=== PATIENT | male | born 1935 | race Two or more races ===

== ENCOUNTER 2017-08-28 23:25 | Emergency (ER) | payer OTHER ==
[~2017-08-28] VITALS: Ht 177.8 cm; Wt 113.4 kg
[~2017-08-28 23:25] MED LIST: ATEN-60 PO; GABA-497 PO; GLIP-115 PO; HYDR25TA4 PO; LORA-205 PO; LOSA50TA6 PO; WARF2.5T; WARF2.5T39 PO
[2017-08-29 00:06] LABS: Basophils # (auto) 0.1 uL; Eosinophils # (auto) 0.2 uL; Eosinophils % (auto) 2.3 % (0.0-7.0); Hematocrit 41.4 % (41.0-53.0); Lymphocytes # (auto) 2.7 uL; Mean Corpuscular Hemoglobin 30.1 pg (28.0-32.0); Mean Corpuscular Hgb Conc. 33.9 g/dL (32.0-36.0); Mean Corpuscular Volume 88.8 fL (80.0-100.0); Mean Platelet Volume 8.8 fL (6.9-10.8); Monocytes # (auto) 0.9 uL; Neutrophils # (auto) 4.5 uL; Neutrophils % (auto) 53.7 % (37.0-80.0); Nucleated Red Blood Cells % 0.1 %; Platelet Count (auto) 148 10^3/uL (140-450); Red Cell Distribution Width 14.7 % (11.8-14.3); White Blood Cell 8.3 10^3/uL (4.4-10.8)
[2017-08-29 00:18] VITALS: BP 143/74
[2017-08-29 00:22] LABS: Albumin 3.6 g/dL (3.4-5.0); Anion Gap 8 (5-15); Aspartate Aminotransferase 20 U/L (15-37); BUN/Creatinine Ratio 12.1; Blood Urea Nitrogen 14 mg/dL (7-18); Calcium 8.3 mg/dL (8.5-10.1); Carbon Dioxide 26 mmol/L (21-32); Chloride 108 mmol/L (98-107); GFR African American 78 mL/min; GFR Non-African American 64 mL/min; Glucose 116 mg/dL (74-106); Magnesium 2.4 mg/dL (1.6-2.6); Potassium 3.8 mmol/L (3.5-5.1); Sodium 142 mmol/L (136-145)
[2017-08-29 00:27] LABS: Alkaline Phosphatase 41 U/L (45-117); Bilirubin, Total 0.7 mg/dL (0.2-1.0); Total Protein 6.8 g/dL (6.4-8.2)
== END 2017-08-29 01:33 | disposition home or self-care (01) ==
LOC: EDBD 23:25 → ER 23:26 → EDUNIT# 23:26 → ER 08-29 01:33
DX: I10 Essential (primary) hypertension (principal); R07.9 Chest pain, unspecified; E11.9 Type 2 diabetes mellitus without complications
CPT/HCPCS: 36415; 80053; 83735; 84484; 85025; 93005; 94761

== ENCOUNTER 2018-01-26 21:13 | Emergency (ER) | payer OTHER ==
[~2018-01-26] VITALS: Ht 157.5 cm; Wt 97.1 kg
[~2018-01-26 21:13] MED LIST changes: -GABA-497 PO; +GABA300C10 PO
[2018-01-26] MEDS: cloNIDine HCL 0.1 MG TAB ONE (21:53)
[2018-01-26] MEDS: cloNIDine HCL 0.1 MG TAB PO ONE (21:53)
[2018-01-26 23:21] LABS: Basophils # (auto) 0.1 uL; Basophils % (auto) 1.1 % (0.0-2.0); Eosinophils # (auto) 0.2 uL; Eosinophils % (auto) 2.4 % (0.0-7.0); Hematocrit 38.1 % (41.0-53.0); Lymphocytes # (auto) 2.3 uL; Lymphocytes % (auto) 24.1 % (10.0-50.0); Mean Corpuscular Hemoglobin 30.1 pg (28.0-32.0); Mean Corpuscular Hgb Conc. 34.1 g/dL (32.0-36.0); Mean Corpuscular Volume 88.2 fL (80.0-100.0); Monocytes # (auto) 0.8 uL; Monocytes % (auto) 8.4 % (0.0-12.0); Platelet Count (auto) 174 10^3/uL (140-450); Red Blood Cells 4.32 10^6/uL (4.5-5.90); Red Cell Distribution Width 14.4 % (11.8-14.3); White Blood Cell 9.4 10^3/uL (4.4-10.8)
[2018-01-26 23:30] LABS: Partial Thromboplastin Time 30.1 sec (22.64-33.71); Prothrombin Time 10.9 sec (9.37-12.3)
[2018-01-26 23:39] LABS: Alanine Aminotransferase 28 U/L (16-61); Albumin 3.4 g/dL (3.4-5.0); Alkaline Phosphatase 41 U/L (45-117); Anion Gap 5 (5-15); Aspartate Aminotransferase 18 U/L (15-37); BUN/Creatinine Ratio 10.2; Bilirubin, Total 1.1 mg/dL (0.2-1.0); Blood Urea Nitrogen 13 mg/dL (7-18); Calcium 7.7 mg/dL (8.5-10.1); Carbon Dioxide 27 mmol/L (21-32); Chloride 106 mmol/L (98-107); GFR African American 70 mL/min; GFR Non-African American 58 mL/min; Glucose 108 mg/dL (74-106); Potassium 3.9 mmol/L (3.5-5.1); Sodium 138 mmol/L (136-145); Total Protein 6.7 g/dL (6.4-8.2)
[2018-01-27 05:28] VITALS: BP 138/60
== END 2018-01-27 05:57 | disposition home or self-care (01) ==
LOC: MERGE 21:13 → ER 21:13
DX: I10 Essential (primary) hypertension (principal); E11.9 Type 2 diabetes mellitus without complications; R42 Dizziness and giddiness
CPT/HCPCS: 36415; 71046; 80053; 83880; 84484; 85025; 85610; 85730; 93005

== ENCOUNTER 2018-03-19 13:06 | Inpatient (IN) | payer OTHER ==
[~2018-03-19] VITALS: Ht 172.7 cm; Wt 94.7 kg
[~2018-03-19 13:06] MED LIST changes: +ATEN50TA; +DOCU-137; +FUR20T; +LORA2TAB89 PO; +LOSA25TA9 PO; +LOSA50TA6; +METF-370 PO; +TRAM50TA2
[2018-03-19 14:15] LABS: Basophils # (auto) 0.1 uL; Basophils % (auto) 0.9 % (0.0-2.0); Eosinophils # (auto) 0.1 uL; Eosinophils % (auto) 0.6 % (0.0-7.0); Hematocrit 44.1 % (41.0-53.0); Hemoglobin 14.9 g/dL (13.5-17.5); Lymphocytes # (auto) 1.8 uL; Lymphocytes % (auto) 19.1 % (10.0-50.0); Mean Corpuscular Hemoglobin 29.8 pg (28.0-32.0); Mean Corpuscular Hgb Conc. 33.8 g/dL (32.0-36.0); Mean Corpuscular Volume 88.2 fL (80.0-100.0); Monocytes # (auto) 0.8 uL; Monocytes % (auto) 8.2 % (0.0-12.0); Neutrophils # (auto) 6.8 uL; Neutrophils % (auto) 71.2 % (37.0-80.0); Nucleated Red Blood Cells % 0.1 %; Platelet Count (auto) 170 10^3/uL (140-450); Red Cell Distribution Width 13.7 % (11.8-14.3); White Blood Cell 9.5 10^3/uL (4.4-10.8)
[2018-03-19 14:36] LABS: Alanine Aminotransferase 30 U/L (16-61); Albumin 3.5 g/dL (3.4-5.0); Anion Gap 8 (5-15); Aspartate Aminotransferase 16 U/L (15-37); Blood Urea Nitrogen 10 mg/dL (7-18); Calcium 8.3 mg/dL (8.5-10.1); Carbon Dioxide 27 mmol/L (21-32); Chloride 97 mmol/L (98-107); GFR African American 82 mL/min; GFR Non-African American 68 mL/min; Glucose 105 mg/dL (74-106); Magnesium 1.7 mg/dL (1.6-2.6); Potassium 3.4 mmol/L (3.5-5.1); Sodium 132 mmol/L (136-145)
[2018-03-19 14:41] LABS: Alkaline Phosphatase 37 U/L (45-117); Bilirubin, Total 1.6 mg/dL (0.2-1.0); Total Protein 7.4 g/dL (6.4-8.2)
[2018-03-19] MEDS ORDERED: DEXTROSE (50%) 50ML SYRG IV PRN (18:45)
[2018-03-19] MEDS ORDERED: MORPHINE SULFATE 8mg/ml INJ SDV IV PRN ×2 (18:45)
[2018-03-19] MEDS ORDERED: NITROGLYCERIN 0.4 MG SL TAB SL PRN (18:45)
[2018-03-19] MEDS ORDERED: PROMETHAZINE HCL 25 MG/ML 1ML IV PRN (18:45)
[2018-03-19] MEDS ORDERED: ASPirin 81 mg TAB PO ONE (19:15)
[2018-03-19] MEDS ORDERED: GABAPENTIN 300 MG CAP PO ONE (19:15)
[2018-03-19] MEDS ORDERED: LOSARTAN POTASSIUM 50 MG TAB PO ONE (19:15)
[2018-03-19] MEDS ORDERED: HCTZ 25 MG TAB PO ONE (19:15)
[2018-03-19] MEDS: SODIUM CHLORIDE 0.9% 1,000 ML IV SCH (20:03)
[2018-03-19 20:55] LABS: INR 1.04 (0.9-1.15); Partial Thromboplastin Time 32.6 sec (23.78-33.04); Prothrombin Time 11.1 sec (9.27-12.13)
[2018-03-19] MEDS ORDERED: WARFARIN SODIUM 5 MG TAB PO ONE (21:45)
[2018-03-19] MEDS: ATORVASTATIN 20 MG TAB PO SCH (21:59)
[2018-03-19] MEDS: LORazepam 0.5 MG TAB PO PRN (22:00)
[2018-03-19] MEDS: ATENOLOL 25 MG TAB PO SCH (22:00)
[2018-03-19] MEDS: ACCU-CHEK COMFORT CURVE STRIP VI SCH (22:00)
[2018-03-19] MEDS: InsuLIN REG 1unit/0.01ml Soln (100units/ml) SC SCH (22:00)
[2018-03-19] MEDS: ACETAMINOPHEN 500 MG TAB PO PRN (22:01)
[2018-03-19 22:52] LABS: Urine Bacteria FEW /hpf (None Seen); Urine Blood Negative /uL (Negative); Urine WBC 73 /hpf (0 - 3)
[2018-03-19 23:16] VITALS: BP 153/79
[2018-03-20 01:36] VITALS: BP 125/56
[2018-03-20] MEDS ORDERED: POTASSIUM CHL 20 Meq TABLET PO ONE (01:45)
[2018-03-20] MEDS ORDERED: MAGNESIUM SULFATE 1GM/100ML 100 ML IV ONE ×2 (01:45→01:49)
[2018-03-20 05:25] VITALS: BP 126/84
[2018-03-20] MEDS: InsuLIN REG 1unit/0.01ml Soln (100units/ml) SC SCH ×4 (06:22→21:26)
[2018-03-20] MEDS: ACCU-CHEK COMFORT CURVE STRIP VI SCH ×4 (06:22→21:20)
[2018-03-20 06:56] LABS: INR 1.06 (0.9-1.15); Partial Thromboplastin Time 30.2 sec (23.78-33.04); Prothrombin Time 11.3 sec (9.27-12.13)
[2018-03-20 07:06] LABS: Albumin 3.4 g/dL (3.4-5.0); BUN/Creatinine Ratio 13.9; Bilirubin, Total 1.4 mg/dL (0.2-1.0); Calcium 8.8 mg/dL (8.5-10.1); Potassium 3.5 mmol/L (3.5-5.1); Total Protein 6.4 g/dL (6.4-8.2)
[2018-03-20] MEDS: LORazepam 0.5 MG TAB PO PRN ×2 (08:47→17:28)
[2018-03-20 09:00] VITALS: BP 148/71
[2018-03-20] MEDS ORDERED: glipiZIDE 5 MG TAB PO SCH (10:00)
[2018-03-20] MEDS: NITROGLYCERIN 0.2MG/HR TOPICAL PATCH TD SCH (10:50)
[2018-03-20] MEDS: HCTZ 25 MG TAB PO SCH (10:53)
[2018-03-20] MEDS: LOSARTAN POTASSIUM 50 MG TAB PO SCH (10:53)
[2018-03-20] MEDS: GABAPENTIN 300 MG CAP PO SCH (10:54)
[2018-03-20] MEDS: ASPirin 81 mg TAB PO SCH (10:55)
[2018-03-20] MEDS: ATENOLOL 25 MG TAB PO SCH ×2 (10:55→21:17)
[2018-03-20] MEDS: SODIUM CHLORIDE 0.9% 1,000 ML IV SCH ×2 (11:00→21:16)
[2018-03-20 12:53] VITALS: BP 142/71
[2018-03-20] MEDS: HYDROcodone-ACET 5/325MG TAB PO PRN (13:50)
[2018-03-20 16:53] VITALS: BP 142/77
[2018-03-20] MEDS ORDERED: WARFARIN SODIUM 5 MG TAB PO ONE (17:00)
[2018-03-20] MEDS: ACETAMINOPHEN 500 MG TAB PO PRN (17:28)
[2018-03-20] MEDS: TEMAZEPAM 15 MG CAP PO PRN (21:17)
[2018-03-20] MEDS: ATORVASTATIN 20 MG TAB PO SCH (21:17)
[2018-03-20 22:19] VITALS: BP 127/99
[2018-03-21] MEDS: ACETAMINOPHEN 500 MG TAB PO PRN ×2 (03:24→23:32)
[2018-03-21] MEDS: LORazepam 0.5 MG TAB PO PRN ×4 (03:24→23:27)
[2018-03-21 05:09] VITALS: BP 129/81
[2018-03-21] MEDS: ACCU-CHEK COMFORT CURVE STRIP VI SCH ×4 (06:12→21:42)
[2018-03-21] MEDS: InsuLIN REG 1unit/0.01ml Soln (100units/ml) SC SCH ×4 (06:12→21:43)
[2018-03-21 06:19] LABS: INR 1.17 (0.9-1.15); Prothrombin Time 12.4 sec (9.27-12.13)
[2018-03-21] MEDS ORDERED: SALINE 0.65 % NASAL SPRAY 45ML BOTTLE EACHNOSTRI PRN (07:00)
[2018-03-21 09:10] VITALS: BP 154/84
[2018-03-21] MEDS: LOSARTAN POTASSIUM 50 MG TAB PO SCH (09:35)
[2018-03-21] MEDS: NITROGLYCERIN 0.2MG/HR TOPICAL PATCH TD SCH (09:35)
[2018-03-21] MEDS: HCTZ 25 MG TAB PO SCH (09:35)
[2018-03-21] MEDS: ASPirin 81 mg TAB PO SCH (09:36)
[2018-03-21] MEDS: ATENOLOL 25 MG TAB PO SCH ×2 (09:36→21:41)
[2018-03-21] MEDS: GABAPENTIN 300 MG CAP PO SCH (09:36)
[2018-03-21] MEDS: HYDROcodone-ACET 5/325MG TAB PO PRN ×2 (09:49→17:29)
[2018-03-21] MEDS: SODIUM CHLORIDE 0.9% 1,000 ML IV SCH ×2 (10:42→23:28)
[2018-03-21 13:00] VITALS: BP 145/78
[2018-03-21] MEDS ORDERED: MORPHINE SULFATE 10 MG/ML INJ 1ML SDV IV PRN ×2 (15:00)
[2018-03-21 17:00] VITALS: BP 148/78
[2018-03-21] MEDS ORDERED: WARFARIN SODIUM 2.5 MG TAB PO ONE (17:00)
[2018-03-21] MEDS: ATORVASTATIN 20 MG TAB PO SCH (21:41)
[2018-03-21 22:00] VITALS: BP 152/75
[2018-03-22 05:00] VITALS: BP 143/71
[2018-03-22] MEDS: ACETAMINOPHEN 500 MG TAB PO PRN (06:21)
[2018-03-22] MEDS: LORazepam 0.5 MG TAB PO PRN ×2 (06:22→15:59)
[2018-03-22] MEDS: InsuLIN REG 1unit/0.01ml Soln (100units/ml) SC SCH ×4 (06:26→21:10)
[2018-03-22] MEDS: ACCU-CHEK COMFORT CURVE STRIP VI SCH ×4 (06:26→21:09)
[2018-03-22] MEDS: glipiZIDE 5 MG TAB PO SCH (06:26)
[2018-03-22 08:30] VITALS: BP 151/91
[2018-03-22 08:35] LABS: INR 2.01 (0.9-1.15); Partial Thromboplastin Time 36.6 sec (23.78-33.04); Prothrombin Time 20.7 sec (9.27-12.13)
[2018-03-22 09:00] VITALS: BP 151/91
[2018-03-22] MEDS: GABAPENTIN 300 MG CAP PO SCH (09:23)
[2018-03-22] MEDS: ASPirin 81 mg TAB PO SCH (09:23)
[2018-03-22] MEDS: HCTZ 25 MG TAB PO SCH (09:24)
[2018-03-22] MEDS: ATENOLOL 25 MG TAB PO SCH ×2 (09:24→21:09)
[2018-03-22] MEDS: LOSARTAN POTASSIUM 50 MG TAB PO SCH (09:24)
[2018-03-22] MEDS: NITROGLYCERIN 0.2MG/HR TOPICAL PATCH TD SCH (09:25)
[2018-03-22 13:00] VITALS: BP 165/98
[2018-03-22] MEDS: SODIUM CHLORIDE 0.9% 1,000 ML IV SCH (13:22)
[2018-03-22] MEDS ORDERED: cloNIDine HCL 0.1 MG TAB PO ONE (16:00)
[2018-03-22] MEDS ORDERED: traMADol HCL 50 MG TAB PO PRN (16:15)
[2018-03-22 17:00] VITALS: BP_SYST 155; BP_SYST 158; BP_DIAS 103; BP_DIAS 96
[2018-03-22] MEDS ORDERED: WARFARIN SODIUM 1 MG TAB PO ONE (17:00)
[2018-03-22] MEDS: cloNIDine HCL 0.1 MG TAB PO SCH (21:09)
[2018-03-22] MEDS: ATORVASTATIN 20 MG TAB PO SCH (21:09)
[2018-03-22] MEDS: TEMAZEPAM 15 MG CAP PO PRN (21:11)
[2018-03-22 22:00] VITALS: BP 160/79
[2018-03-23 05:00] VITALS: BP 138/71
[2018-03-23] MEDS: ACCU-CHEK COMFORT CURVE STRIP VI SCH ×3 (06:21→17:00)
[2018-03-23] MEDS: InsuLIN REG 1unit/0.01ml Soln (100units/ml) SC SCH ×3 (06:21→17:00)
[2018-03-23 06:23] LABS: INR 2.41 (0.9-1.15); Partial Thromboplastin Time 36.5 sec (23.78-33.04); Prothrombin Time 24.5 sec (9.27-12.13)
[2018-03-23] MEDS: glipiZIDE 5 MG TAB PO SCH (07:00)
[2018-03-23 08:22] VITALS: BP 139/82
[2018-03-23 09:00] VITALS: BP 139/82
[2018-03-23] MEDS: GABAPENTIN 300 MG CAP PO SCH (09:36)
[2018-03-23] MEDS: ASPirin 81 mg TAB PO SCH (09:36)
[2018-03-23] MEDS: HCTZ 25 MG TAB PO SCH (09:36)
[2018-03-23] MEDS: LOSARTAN POTASSIUM 50 MG TAB PO SCH (09:37)
[2018-03-23] MEDS: ATENOLOL 25 MG TAB PO SCH (09:37)
[2018-03-23] MEDS: NITROGLYCERIN 0.2MG/HR TOPICAL PATCH TD SCH (09:38)
[2018-03-23] MEDS: LORazepam 0.5 MG TAB PO PRN (09:40)
[2018-03-23] MEDS: cloNIDine HCL 0.1 MG TAB PO SCH (09:41)
[2018-03-23 12:48] VITALS: BP 112/64
[2018-03-23 15:45] VITALS: BP 112/64
[2018-03-23 17:00] VITALS: BP 135/82
[2018-03-23] MEDS ORDERED: WARFARIN SODIUM 2 MG TAB PO ONE (17:00)
== END 2018-03-23 19:10 | disposition home or self-care (01) | DRG 292 ==
LOC: EDBD 13:06 → ER 13:06 → TELE 13:07 → TELE-WESTW 20:22
PROVIDERS: ADMIT Internal Medicine; ATTEND Internal Medicine
DX: I11.0 Hypertensive heart disease with heart failure (principal); E87.1 Hypo-osmolality and hyponatremia; I48.2 Chronic atrial fibrillation; E66.01 Morbid (severe) obesity due to excess calories; I44.7 Left bundle-branch block, unspecified; R07.89 Other chest pain; I50.9 Heart failure, unspecified; E87.6 Hypokalemia; Z82.49 Family history of ischemic heart disease and other diseases of the circulatory system; Z83.3 Family history of diabetes mellitus; Z85.46 Personal history of malignant neoplasm of prostate; Z79.899 Other long term (current) drug therapy; Z68.31 Body mass index [BMI] 31.0-31.9, adult
CPT/HCPCS: 36415; 71045; 80053; 80061; 81001; 82550; 82962; 83036; 83735; 83880; 84443; 84484; 85025; 85379; 85610; 85652; 85730; 86141; 93005; J1815

== ENCOUNTER 2018-04-05 18:40 | Emergency (ER) | payer OTHER ==
[~2018-04-05] VITALS: Ht 175.3 cm; Wt 90.7 kg
[2018-04-05 20:41] LABS: Basophils # (auto) 0.1 uL; Basophils % (auto) 0.8 % (0.0-2.0); Eosinophils # (auto) 0.1 uL; Eosinophils % (auto) 0.8 % (0.0-7.0); Lymphocytes # (auto) 1.7 uL; Lymphocytes % (auto) 19.6 % (10.0-50.0); Mean Corpuscular Hemoglobin 29.4 pg (28.0-32.0); Mean Corpuscular Hgb Conc. 33.4 g/dL (32.0-36.0); Mean Corpuscular Volume 88.1 fL (80.0-100.0); Monocytes # (auto) 0.8 uL; Monocytes % (auto) 9.1 % (0.0-12.0); Neutrophils # (auto) 6.1 uL; Neutrophils % (auto) 69.7 % (37.0-80.0); Nucleated Red Blood Cells % 0.1 %; Platelet Count (auto) 145 10^3/uL (140-450); Red Blood Cells 4.76 10^6/uL (4.5-5.90); Red Cell Distribution Width 13.6 % (11.8-14.3); White Blood Cell 8.8 10^3/uL (4.4-10.8)
[2018-04-05 20:49] LABS: Alanine Aminotransferase 36 U/L (16-61); Albumin 3.6 g/dL (3.4-5.0); Alkaline Phosphatase 42 U/L (45-117); Anion Gap 9 (5-15); Aspartate Aminotransferase 29 U/L (15-37); BUN/Creatinine Ratio 10.4; Bilirubin, Total 1.8 mg/dL (0.2-1.0); Blood Urea Nitrogen 11 mg/dL (7-18); Calcium 8.4 mg/dL (8.5-10.1); Carbon Dioxide 27 mmol/L (21-32); Chloride 101 mmol/L (98-107); GFR African American 86 mL/min; GFR Non-African American 71 mL/min; Glucose 102 mg/dL (74-106); Magnesium 2.3 mg/dL (1.6-2.6); Potassium 4.3 mmol/L (3.5-5.1); Sodium 137 mmol/L (136-145)
[2018-04-05 20:58] LABS: INR 1.05 (0.9-1.15); Partial Thromboplastin Time 29.3 sec (23.78-33.04); Prothrombin Time 11.2 sec (9.27-12.13)
[2018-04-05 21:41] VITALS: BP 146/89
== END 2018-04-05 22:16 | disposition home or self-care (01) ==
LOC: EDBD 18:40 → ER 18:44
DX: R07.89 Other chest pain (principal); E11.9 Type 2 diabetes mellitus without complications; I10 Essential (primary) hypertension; I48.91 Unspecified atrial fibrillation; Z79.899 Other long term (current) drug therapy
CPT/HCPCS: 36415; 71045; 80053; 83735; 84484; 85025; 85610; 85730; 93005

== ENCOUNTER 2018-06-29 11:54 | Inpatient (IN) | payer OTHER ==
[~2018-06-29] VITALS: Ht 167.6 cm; Wt 99.5 kg
[~2018-06-29 11:54] MED LIST changes: -ATEN50TA; -DOCU-137; +FAMOTIDINE 20 MG TAB PO SCH; -FUR20T; -GLIP-115 PO; -LORA2TAB89 PO; +LOSA-46 PO; -LOSA25TA9 PO; -LOSA50TA6; -LOSA50TA6 PO; -METF-370 PO; -TRAM50TA2; -WARF2.5T; -WARF2.5T39 PO
[2018-06-29] MEDS ORDERED: ASPirin 81 mg TAB PO ONE (12:30)
[2018-06-29 13:29] LABS: Basophils # (auto) 0.1 uL; Basophils % (auto) 0.6 % (0.0-2.0); Eosinophils # (auto) 0 uL; Eosinophils % (auto) 0.1 % (0.0-7.0); Hemoglobin 15.1 g/dL (13.5-17.5); Lymphocytes # (auto) 1.2 uL; Lymphocytes % (auto) 12.6 % (10.0-50.0); Mean Corpuscular Hemoglobin 28.9 pg (28.0-32.0); Mean Corpuscular Hgb Conc. 33.6 g/dL (32.0-36.0); Mean Corpuscular Volume 85.9 fL (80.0-100.0); Monocytes # (auto) 1.3 uL; Monocytes % (auto) 13.9 % (0.0-12.0); Neutrophils % (auto) 72.8 % (37.0-80.0); Nucleated Red Blood Cells % 0.1 %; Platelet Count (auto) 151 10^3/uL (140-450); Red Blood Cells 5.23 10^6/uL (4.5-5.90); Red Cell Distribution Width 15.6 % (11.8-14.3); White Blood Cell 9.6 10^3/uL (4.4-10.8)
[2018-06-29] MEDS ORDERED: cefTRIAXone 1GM/10ml IVPUSH 10 ML IV ONE (13:45)
[2018-06-29] MEDS ORDERED: FUROSEMIDE 40 MG/4 ML VIAL IV ONE (13:45)
[2018-06-29 13:47] LABS: INR 1.33 (0.9-1.15)
[2018-06-29 14:03] LABS: Alanine Aminotransferase 202 U/L (16-61); Albumin 3.3 g/dL (3.4-5.0); Alkaline Phosphatase 76 U/L (45-117); Anion Gap 8 (5-15); Aspartate Aminotransferase 116 U/L (15-37); BUN/Creatinine Ratio 17.2; Bilirubin, Total 2.3 mg/dL (0.2-1.0); Blood Urea Nitrogen 35 mg/dL (7-18); Calcium 8.1 mg/dL (8.5-10.1); Carbon Dioxide 25 mmol/L (21-32); Chloride 103 mmol/L (98-107); GFR African American 41 mL/min; GFR Non-African American 33 mL/min; Glucose 120 mg/dL (74-106); Potassium 4.1 mmol/L (3.5-5.1); Sodium 136 mmol/L (136-145); Total Protein 6.5 g/dL (6.4-8.2)
[2018-06-29] MEDS ORDERED: AZITHROMYCIN 500MG/ 250ML 250 ML IV ONE (15:30)
[2018-06-29] MEDS ORDERED: HYDROcodone-ACET 5/325MG TAB PO PRN (15:30)
[2018-06-29] MEDS ORDERED: NITROGLYCERIN 0.4 MG SL TAB SL PRN (15:30)
[2018-06-29] MEDS ORDERED: MORPHINE SULF INJ 2 MG/ML SYRINGE 1ML IV PRN (15:30)
[2018-06-29] MEDS ORDERED: DEXTROSE (50%) 50ML SYRG IV PRN (15:30)
[2018-06-29] MEDS ORDERED: cloNIDine HCL 0.1 MG TAB PO PRN (16:00)
[2018-06-29] MEDS ORDERED: FAMOTIDINE 20 MG TAB PO ONE (16:15)
[2018-06-29 16:23] VITALS: BP 137/84
[2018-06-29 17:00] VITALS: BP 119/93
[2018-06-29] MEDS: POTASSIUM CHL 10 Meq TABLET PO SCH (17:45)
[2018-06-29] MEDS: ACCU-CHEK COMFORT CURVE STRIP VI SCH ×2 (17:45→21:17)
[2018-06-29 17:50] VITALS: BP 119/93
[2018-06-29] MEDS: InsuLIN REG 1unit/0.01ml Soln (100units/ml) SC SCH ×2 (17:50→21:16)
[2018-06-29] MEDS: traMADol HCL 50 MG TAB PO PRN (17:56)
[2018-06-29] MEDS ORDERED: FUROSEMIDE 40 MG/4 ML VIAL IV SCH (18:00)
[2018-06-29] MEDS: ALBUTEROL SULF 2.5 MG/0.5ML(0.5%) NEB SOLN NEB SCH (18:48)
[2018-06-29] MEDS: IPRATROPIUM BROM 0.5 MG/2.5ML INH SOL NEB SCH (18:48)
[2018-06-29 19:38] LABS: Lactic Acid w/Reflex 2.7 mmol/L (0.4-2.0)
[2018-06-29] MEDS: DOCUSATE SOD 100 MG CAP PO PRN (20:04)
[2018-06-29] MEDS: ONDANSETRON HCL 4 MG/2 ML VIAL IV PRN (20:05)
[2018-06-29 20:55] VITALS: BP 133/100
[2018-06-29] MEDS: SODIUM CHLOR 0.9% PF (SALINE LOCK) 10ML VIAL/SYR IV SCH (21:14)
[2018-06-29] MEDS: cloNIDine HCL 0.1 MG TAB PO SCH (21:14)
[2018-06-29] MEDS ORDERED: ATENOLOL 50 MG TAB PO ONE (21:45)
[2018-06-29 22:00] VITALS: BP 127/93
[2018-06-29] MEDS ORDERED: DICLOFENAC 50MG TAB PO SCH (22:00)
[2018-06-29 23:13] LABS: Urine Bacteria MOD /hpf (None Seen); Urine Blood Negative /uL (Negative); Urine Hyaline Cast MOD /lpf (0 - 2); Urine Mucus FEW (None Seen); Urine Specific Gravity 1.008 (1.001-1.035); Urine WBC 3 /hpf (0 - 3)
[2018-06-29] MEDS ORDERED: SODIUM CHLORIDE 0.9% 500 ML IV ONE (23:30)
[2018-06-30] MEDS: ALBUTEROL SULF 2.5 MG/0.5ML(0.5%) NEB SOLN NEB SCH ×4 (00:36→18:00)
[2018-06-30] MEDS: IPRATROPIUM BROM 0.5 MG/2.5ML INH SOL NEB SCH ×4 (00:36→18:00)
[2018-06-30] MEDS ORDERED: POTA10TA51 PO (01:25)
[2018-06-30] MEDS ORDERED: RANI150C11 PO (01:36)
[2018-06-30] MEDS ORDERED: [UNRECOGNIZED DRUG - CODE] PO (01:36)
[2018-06-30] MEDS ORDERED: MECL1TAB42 PO (01:36)
[2018-06-30] MEDS ORDERED: MELO1TAB56 PO (01:36)
[2018-06-30] MEDS ORDERED: DOCU1CAP54 PO (01:37)
[2018-06-30] MEDS ORDERED: LORA2TAB89 PO (01:37)
[2018-06-30] MEDS ORDERED: TAM04C PO (01:37)
[2018-06-30] MEDS ORDERED: LORA2TAB10 PO (01:37)
[2018-06-30] MEDS ORDERED: CLON0.1T PO (01:37)
[2018-06-30] MEDS ORDERED: TEMA15CA91 PO (01:37)
[2018-06-30] MEDS ORDERED: FURO20TA PO (01:37)
[2018-06-30] MEDS ORDERED: SERT-274 PO (01:37)
[2018-06-30] MEDS ORDERED: TRAM50TA2 PO (01:37)
[2018-06-30] MEDS ORDERED: DICL50TA2 PO (01:37)
[2018-06-30] MEDS ORDERED: CHOL20007 PO (01:37)
[2018-06-30] MEDS ORDERED: BUSP5TAB51 PO (01:37)
[2018-06-30 04:46] VITALS: BP 126/95
[2018-06-30] MEDS: FUROSEMIDE 40 MG/4 ML VIAL IV SCH ×2 (05:26→17:59)
[2018-06-30] MEDS: SODIUM CHLOR 0.9% PF (SALINE LOCK) 10ML VIAL/SYR IV SCH ×3 (05:27→21:22)
[2018-06-30] MEDS: InsuLIN REG 1unit/0.01ml Soln (100units/ml) SC SCH ×4 (05:28→22:00)
[2018-06-30] MEDS: POTASSIUM CHL 10 Meq TABLET PO SCH ×2 (05:28→17:59)
[2018-06-30] MEDS: ACCU-CHEK COMFORT CURVE STRIP VI SCH ×4 (05:28→22:31)
[2018-06-30 05:36] VITALS: BP 134/78
[2018-06-30 05:41] LABS: Basophils # (auto) 0.1 uL; Basophils % (auto) 0.9 % (0.0-2.0); Eosinophils # (auto) 0 uL; Eosinophils % (auto) 0.4 % (0.0-7.0); Hematocrit 47.4 % (41.0-53.0); Hemoglobin 15.6 g/dL (13.5-17.5); Lymphocytes # (auto) 2.2 uL; Lymphocytes % (auto) 19.1 % (10.0-50.0); Mean Corpuscular Hemoglobin 28.6 pg (28.0-32.0); Mean Corpuscular Hgb Conc. 32.9 g/dL (32.0-36.0); Monocytes % (auto) 17.2 % (0.0-12.0); Neutrophils # (auto) 7.2 uL; Neutrophils % (auto) 62.4 % (37.0-80.0); Nucleated Red Blood Cells % 0.1 %; Platelet Count (auto) 148 10^3/uL (140-450); Red Blood Cells 5.45 10^6/uL (4.5-5.90); White Blood Cell 11.6 10^3/uL (4.4-10.8)
[2018-06-30 06:00] LABS: Lactic Acid w/Reflex 2.3 mmol/L (0.4-2.0)
[2018-06-30 06:04] LABS: Albumin 3.4 g/dL (3.4-5.0); BUN/Creatinine Ratio 18.4; Calcium 8.2 mg/dL (8.5-10.1); Potassium 4.4 mmol/L (3.5-5.1); Total Protein 6.7 g/dL (6.4-8.2)
[2018-06-30 09:00] VITALS: BP 150/100
[2018-06-30] MEDS: LORazepam 0.5 MG TAB PO PRN (09:32)
[2018-06-30] MEDS: CHOLECALCIFEROL (VITD3) 1,000 UNIT TAB PO SCH (09:32)
[2018-06-30] MEDS: MULTIPLE VITAMIN TAB PO SCH (09:32)
[2018-06-30] MEDS: ASPirin-EC 81 mg tab PO SCH (09:32)
[2018-06-30] MEDS: cefTRIAXone 1GM/10ml IVPUSH 10 ML IV SCH (09:33)
[2018-06-30] MEDS: FAMOTIDINE 20 MG TAB PO SCH (09:36)
[2018-06-30] MEDS: cloNIDine HCL 0.1 MG TAB PO SCH ×2 (09:37→21:22)
[2018-06-30] MEDS: ONDANSETRON HCL 4 MG/2 ML VIAL IV PRN (09:40)
[2018-06-30] MEDS ORDERED: AZITHROMYCIN 500MG/ 250ML 250 ML IV SCH (10:00)
[2018-06-30] MEDS: MORPHINE SULF INJ 2 MG/ML SYRINGE 1ML IV PRN (11:11)
[2018-06-30 13:00] VITALS: BP 126/77
[2018-06-30 17:00] VITALS: BP 131/82
[2018-06-30] MEDS: BUDESONIDE (INHALATION) 0.5 MG/2 ML NEB NEB SCH (21:38)
[2018-06-30 22:00] VITALS: BP 114/76
[2018-07-01 04:52] VITALS: BP 123/79
[2018-07-01] MEDS: SODIUM CHLOR 0.9% PF (SALINE LOCK) 10ML VIAL/SYR IV SCH ×3 (05:43→21:33)
[2018-07-01] MEDS: InsuLIN REG 1unit/0.01ml Soln (100units/ml) SC SCH ×4 (05:44→22:00)
[2018-07-01] MEDS: FUROSEMIDE 40 MG/4 ML VIAL IV SCH ×2 (05:44→18:41)
[2018-07-01] MEDS: POTASSIUM CHL 10 Meq TABLET PO SCH ×2 (05:44→18:42)
[2018-07-01] MEDS: ACCU-CHEK COMFORT CURVE STRIP VI SCH ×4 (05:44→22:00)
[2018-07-01] MEDS: BUDESONIDE (INHALATION) 0.5 MG/2 ML NEB NEB SCH ×2 (06:21→17:57)
[2018-07-01] MEDS: ALBUTEROL SULF 2.5 MG/0.5ML(0.5%) NEB SOLN NEB SCH ×5 (06:21→23:22)
[2018-07-01] MEDS: IPRATROPIUM BROM 0.5 MG/2.5ML INH SOL NEB SCH ×5 (06:21→23:22)
[2018-07-01 07:13] LABS: Basophils # (auto) 0 uL; Basophils % (auto) 0.5 % (0.0-2.0); Eosinophils # (auto) 0.1 uL; Eosinophils % (auto) 0.5 % (0.0-7.0); Hematocrit 43.7 % (41.0-53.0); Hemoglobin 14.7 g/dL (13.5-17.5); Lymphocytes # (auto) 1.6 uL; Lymphocytes % (auto) 15.8 % (10.0-50.0); Mean Corpuscular Hemoglobin 29.2 pg (28.0-32.0); Mean Corpuscular Hgb Conc. 33.7 g/dL (32.0-36.0); Mean Corpuscular Volume 86.6 fL (80.0-100.0); Monocytes # (auto) 1.5 uL; Neutrophils # (auto) 6.9 uL; Neutrophils % (auto) 68.2 % (37.0-80.0); Nucleated Red Blood Cells % 0.1 %; Platelet Count (auto) 131 10^3/uL (140-450); Red Blood Cells 5.05 10^6/uL (4.5-5.90); Red Cell Distribution Width 15.3 % (11.8-14.3); White Blood Cell 10.1 10^3/uL (4.4-10.8)
[2018-07-01 07:17] LABS: Lactic Acid w/Reflex 2.1 mmol/L (0.4-2.0)
[2018-07-01 07:47] LABS: Albumin 3.2 g/dL (3.4-5.0); BUN/Creatinine Ratio 20.7; Bilirubin, Total 1.4 mg/dL (0.2-1.0); Calcium 8.4 mg/dL (8.5-10.1); Potassium 4.2 mmol/L (3.5-5.1); Total Protein 6.4 g/dL (6.4-8.2)
[2018-07-01 08:30] VITALS: BP 116/77
[2018-07-01] MEDS: ONDANSETRON HCL 4 MG/2 ML VIAL IV PRN (08:38)
[2018-07-01] MEDS: MULTIPLE VITAMIN TAB PO SCH (09:49)
[2018-07-01] MEDS: DOXYCYCLINE 100MG/250ML 250 ML IV SCH ×2 (09:49→21:31)
[2018-07-01] MEDS: ASPirin-EC 81 mg tab PO SCH (09:49)
[2018-07-01] MEDS: cefTRIAXone 1GM/10ml IVPUSH 10 ML IV SCH (09:49)
[2018-07-01] MEDS: CHOLECALCIFEROL (VITD3) 1,000 UNIT TAB PO SCH (09:50)
[2018-07-01] MEDS: FAMOTIDINE 20 MG TAB PO SCH (09:50)
[2018-07-01] MEDS: cloNIDine HCL 0.1 MG TAB PO SCH ×2 (09:52→21:33)
[2018-07-01 12:34] VITALS: BP 137/88
[2018-07-01 16:41] VITALS: BP 119/85
[2018-07-01] MEDS: LORazepam 0.5 MG TAB PO PRN (19:14)
[2018-07-01] MEDS: MORPHINE SULF INJ 2 MG/ML SYRINGE 1ML IV PRN (21:32)
[2018-07-01] MEDS: DOCUSATE SOD 100 MG CAP PO PRN (21:32)
[2018-07-01] MEDS: TEMAZEPAM 15 MG CAP PO PRN (21:32)
[2018-07-01] MEDS: traMADol HCL 50 MG TAB PO PRN (21:32)
[2018-07-01] MEDS: ACETAMINOPHEN 325 MG TAB PO PRN (21:32)
[2018-07-01] MEDS: MECLIZINE HCL 25 MG TAB PO PRN (21:33)
[2018-07-01 21:51] VITALS: BP 138/78
[2018-07-02 04:44] VITALS: BP 121/91
[2018-07-02] MEDS: SODIUM CHLOR 0.9% PF (SALINE LOCK) 10ML VIAL/SYR IV SCH ×3 (06:03→22:00)
[2018-07-02] MEDS: ALBUTEROL SULF 2.5 MG/0.5ML(0.5%) NEB SOLN NEB SCH ×3 (06:03→19:32)
[2018-07-02] MEDS: IPRATROPIUM BROM 0.5 MG/2.5ML INH SOL NEB SCH ×3 (06:03→19:32)
[2018-07-02] MEDS: InsuLIN REG 1unit/0.01ml Soln (100units/ml) SC SCH ×4 (06:04→22:00)
[2018-07-02] MEDS: ACCU-CHEK COMFORT CURVE STRIP VI SCH ×4 (06:04→22:00)
[2018-07-02] MEDS: POTASSIUM CHL 10 Meq TABLET PO SCH ×2 (06:04→18:11)
[2018-07-02] MEDS: FUROSEMIDE 40 MG/4 ML VIAL IV SCH ×2 (06:05→18:11)
[2018-07-02 09:00] VITALS: BP 122/86
[2018-07-02] MEDS: cefTRIAXone 1GM/10ml IVPUSH 10 ML IV SCH (09:22)
[2018-07-02] MEDS: ASPirin-EC 81 mg tab PO SCH (09:41)
[2018-07-02] MEDS: DOXYCYCLINE 100MG/250ML 250 ML IV SCH ×2 (09:41→22:00)
[2018-07-02] MEDS: CHOLECALCIFEROL (VITD3) 1,000 UNIT TAB PO SCH (09:42)
[2018-07-02] MEDS: FAMOTIDINE 20 MG TAB PO SCH (09:42)
[2018-07-02] MEDS: MULTIPLE VITAMIN TAB PO SCH (09:42)
[2018-07-02] MEDS: cloNIDine HCL 0.1 MG TAB PO SCH ×2 (09:43→22:00)
[2018-07-02 09:58] VITALS: BP 122/86
[2018-07-02] MEDS: BUDESONIDE (INHALATION) 0.5 MG/2 ML NEB NEB SCH ×2 (10:18→19:32)
[2018-07-02 13:00] VITALS: BP 137/81
[2018-07-02] MEDS: LORazepam 0.5 MG TAB PO PRN ×2 (16:22→20:36)
[2018-07-02 16:36] LABS: Creatinine, Urine 32 mg/dL (30.0-125.0); Sodium Urine 36 mmol/L (40-220)
[2018-07-02 17:00] VITALS: BP 130/89
[2018-07-02] MEDS: traMADol HCL 50 MG TAB PO PRN (20:35)
[2018-07-02] MEDS: ACETAMINOPHEN 325 MG TAB PO PRN (20:35)
[2018-07-02] MEDS: MECLIZINE HCL 25 MG TAB PO PRN (20:35)
[2018-07-02] MEDS: TEMAZEPAM 15 MG CAP PO PRN (20:35)
[2018-07-02 22:09] VITALS: BP 130/86
[2018-07-03] MEDS: ALBUTEROL SULF 2.5 MG/0.5ML(0.5%) NEB SOLN NEB SCH ×4 (01:04→19:34)
[2018-07-03] MEDS: IPRATROPIUM BROM 0.5 MG/2.5ML INH SOL NEB SCH ×4 (01:04→19:34)
[2018-07-03] MEDS: ACETAMINOPHEN 325 MG TAB PO PRN ×2 (03:12→21:11)
[2018-07-03] MEDS: LORazepam 0.5 MG TAB PO PRN ×3 (03:12→21:11)
[2018-07-03] MEDS: traMADol HCL 50 MG TAB PO PRN ×2 (03:12→21:12)
[2018-07-03] MEDS: SODIUM CHLOR 0.9% PF (SALINE LOCK) 10ML VIAL/SYR IV SCH ×3 (05:27→21:21)
[2018-07-03] MEDS: FUROSEMIDE 40 MG/4 ML VIAL IV SCH ×2 (05:27→18:21)
[2018-07-03] MEDS: POTASSIUM CHL 10 Meq TABLET PO SCH ×2 (05:27→18:21)
[2018-07-03] MEDS: ACCU-CHEK COMFORT CURVE STRIP VI SCH ×4 (05:27→21:21)
[2018-07-03 05:29] VITALS: BP 113/82
[2018-07-03] MEDS: BUDESONIDE (INHALATION) 0.5 MG/2 ML NEB NEB SCH ×2 (05:54→19:34)
[2018-07-03] MEDS: InsuLIN REG 1unit/0.01ml Soln (100units/ml) SC SCH ×4 (05:57→21:20)
[2018-07-03 07:19] LABS: Hematocrit 46.1 % (41.0-53.0); Hemoglobin 15.3 g/dL (13.5-17.5); Mean Corpuscular Hemoglobin 28.7 pg (28.0-32.0); Mean Corpuscular Hgb Conc. 33.3 g/dL (32.0-36.0); Mean Corpuscular Volume 86.4 fL (80.0-100.0); Platelet Count (auto) 144 10^3/uL (140-450); Red Blood Cells 5.33 10^6/uL (4.5-5.90); Red Cell Distribution Width 15.4 % (11.8-14.3); White Blood Cell 10.6 10^3/uL (4.4-10.8)
[2018-07-03 07:24] LABS: Band Neutrophils % (manual) 0; Basophils % (manual) 0 (0.0-2.0); Blast Cells 0; Metamyelocytes % 0; Myelocytes % 0; Promyelocytes % 0; Reactive Lymphocytes 0
[2018-07-03 07:54] LABS: Albumin 3.5 g/dL (3.4-5.0); BUN/Creatinine Ratio 25.7; Bilirubin, Total 1.7 mg/dL (0.2-1.0); Calcium 8.4 mg/dL (8.5-10.1); Phosphorus 4.7 mg/dL (2.5-4.90); Potassium 3.8 mmol/L (3.5-5.1); Total Protein 6.9 g/dL (6.4-8.2); Uric Acid 14.1 mg/dL (3.5-7.2)
[2018-07-03 08:10] LABS: Eosinophils % (manual) 1 (0-7); Lymphocytes % (manual) 19 (10.0-50.0); Monocytes % (manual) 16 (0-12)
[2018-07-03] MEDS: ATENOLOL 25 MG TAB PO SCH ×3 (08:26→19:30)
[2018-07-03 08:55] VITALS: BP 121/89
[2018-07-03] MEDS: MULTIPLE VITAMIN TAB PO SCH (09:36)
[2018-07-03] MEDS: ASPirin-EC 81 mg tab PO SCH (09:36)
[2018-07-03] MEDS: cefTRIAXone 1GM/10ml IVPUSH 10 ML IV SCH (09:36)
[2018-07-03] MEDS: DOXYCYCLINE 100MG/250ML 250 ML IV SCH ×2 (09:36→21:21)
[2018-07-03] MEDS: CHOLECALCIFEROL (VITD3) 1,000 UNIT TAB PO SCH (09:36)
[2018-07-03] MEDS: FAMOTIDINE 20 MG TAB PO SCH (09:36)
[2018-07-03] MEDS: cloNIDine HCL 0.1 MG TAB PO SCH ×2 (09:38→21:13)
[2018-07-03 13:00] VITALS: BP 111/69
[2018-07-03] MEDS: ONDANSETRON HCL 4 MG/2 ML VIAL IV PRN (14:07)
[2018-07-03 17:09] VITALS: BP 106/91
[2018-07-03 21:27] VITALS: BP 116/86
[2018-07-03] MEDS: MORPHINE SULF INJ 2 MG/ML SYRINGE 1ML IV PRN (22:30)
[2018-07-03] MEDS: TEMAZEPAM 15 MG CAP PO PRN (22:30)
[2018-07-04] MEDS: ALBUTEROL SULF 2.5 MG/0.5ML(0.5%) NEB SOLN NEB SCH ×4 (01:09→19:41)
[2018-07-04] MEDS: IPRATROPIUM BROM 0.5 MG/2.5ML INH SOL NEB SCH ×4 (01:09→19:41)
[2018-07-04 04:51] VITALS: BP 101/67
[2018-07-04] MEDS: FUROSEMIDE 40 MG/4 ML VIAL IV SCH ×2 (04:52→17:31)
[2018-07-04] MEDS: SODIUM CHLOR 0.9% PF (SALINE LOCK) 10ML VIAL/SYR IV SCH ×3 (04:52→22:53)
[2018-07-04] MEDS: POTASSIUM CHL 10 Meq TABLET PO SCH ×2 (04:53→17:31)
[2018-07-04] MEDS: ACCU-CHEK COMFORT CURVE STRIP VI SCH ×4 (04:53→22:00)
[2018-07-04] MEDS: InsuLIN REG 1unit/0.01ml Soln (100units/ml) SC SCH ×4 (04:53→22:00)
[2018-07-04 06:21] LABS: Albumin 3.3 g/dL (3.4-5.0); BUN/Creatinine Ratio 24.3; Bilirubin, Total 2.5 mg/dL (0.2-1.0); Calcium 8.5 mg/dL (8.5-10.1); Potassium 4.1 mmol/L (3.5-5.1); Total Protein 6.3 g/dL (6.4-8.2)
[2018-07-04 08:35] VITALS: BP 122/78
[2018-07-04] MEDS: cefTRIAXone 1GM/10ml IVPUSH 10 ML IV SCH (08:46)
[2018-07-04] MEDS: DOXYCYCLINE 100MG/250ML 250 ML IV SCH (08:46)
[2018-07-04] MEDS: MULTIPLE VITAMIN TAB PO SCH (08:47)
[2018-07-04] MEDS: cloNIDine HCL 0.1 MG TAB PO SCH ×2 (08:47→22:53)
[2018-07-04] MEDS: ATENOLOL 50 MG TAB PO SCH ×2 (08:47→22:53)
[2018-07-04] MEDS: ASPirin-EC 81 mg tab PO SCH (08:47)
[2018-07-04] MEDS: FAMOTIDINE 20 MG TAB PO SCH (08:48)
[2018-07-04] MEDS: CHOLECALCIFEROL (VITD3) 1,000 UNIT TAB PO SCH (08:48)
[2018-07-04 09:56] LABS: Hepatitis B Surface Antigen Negative (Negative); Hepatitis C Antibody Negative (Negative)
[2018-07-04] MEDS ORDERED: ATENOLOL 50 MG TAB PO SCH (10:00)
[2018-07-04] MEDS: BUDESONIDE (INHALATION) 0.5 MG/2 ML NEB NEB SCH (12:13)
[2018-07-04] MEDS ORDERED: FUROSEMIDE 40 MG/4 ML VIAL IV ONE (12:30)
[2018-07-04 13:08] VITALS: BP 104/63
[2018-07-04] MEDS ORDERED: MORPHINE SULF INJ 2 MG/ML SYRINGE 1ML IV PRN (13:15)
[2018-07-04 16:25] VITALS: BP 101/71
[2018-07-04 21:43] VITALS: BP 121/90
[2018-07-05] MEDS: IPRATROPIUM BROM 0.5 MG/2.5ML INH SOL NEB SCH ×4 (00:57→19:20)
[2018-07-05] MEDS: BUDESONIDE (INHALATION) 0.5 MG/2 ML NEB NEB SCH ×3 (00:57→19:21)
[2018-07-05] MEDS: ALBUTEROL SULF 2.5 MG/0.5ML(0.5%) NEB SOLN NEB SCH ×4 (00:57→19:20)
[2018-07-05] MEDS: SODIUM CHLOR 0.9% PF (SALINE LOCK) 10ML VIAL/SYR IV SCH ×3 (05:47→22:27)
[2018-07-05] MEDS: FUROSEMIDE 40 MG/4 ML VIAL IV SCH (05:47)
[2018-07-05] MEDS: POTASSIUM CHL 10 Meq TABLET PO SCH ×2 (05:48→16:21)
[2018-07-05] MEDS: ACCU-CHEK COMFORT CURVE STRIP VI SCH ×4 (05:48→22:27)
[2018-07-05] MEDS: InsuLIN REG 1unit/0.01ml Soln (100units/ml) SC SCH ×4 (06:15→22:37)
[2018-07-05 06:21] LABS: Albumin 3.7 g/dL (3.4-5.0); BUN/Creatinine Ratio 22.5; Bilirubin, Total 3.6 mg/dL (0.2-1.0); Calcium 9.1 mg/dL (8.5-10.1); Potassium 4.5 mmol/L (3.5-5.1); Total Protein 6.8 g/dL (6.4-8.2)
[2018-07-05 06:30] VITALS: BP 127/89
[2018-07-05 08:45] VITALS: BP 115/59
[2018-07-05 09:00] VITALS: BP 115/59
[2018-07-05] MEDS ORDERED: DIGOXIN (250MCG/ML) 2 ML AMPULE IV ONE (09:30)
[2018-07-05] MEDS ORDERED: VERAPAMIL 2.5MG/ML INJ 2ML VIAL IV ONE (09:30)
[2018-07-05] MEDS: cloNIDine HCL 0.1 MG TAB PO SCH ×2 (10:00→22:26)
[2018-07-05] MEDS: ATENOLOL 50 MG TAB PO SCH ×2 (10:00→22:26)
[2018-07-05] MEDS: ASPirin-EC 81 mg tab PO SCH (10:29)
[2018-07-05] MEDS: MULTIPLE VITAMIN TAB PO SCH (10:29)
[2018-07-05] MEDS: LEVOFLOXACIN 750MG 150 ML IV SCH (10:29)
[2018-07-05] MEDS: CHOLECALCIFEROL (VITD3) 1,000 UNIT TAB PO SCH (10:30)
[2018-07-05] MEDS: FAMOTIDINE 20 MG TAB PO SCH (10:30)
[2018-07-05 13:15] VITALS: BP 112/94
[2018-07-05 17:26] VITALS: BP 89/62
[2018-07-05] MEDS: MORPHINE SULF INJ 2 MG/ML SYRINGE 1ML IV PRN (20:37)
[2018-07-05] MEDS: LORazepam 0.5 MG TAB PO PRN (22:37)
[2018-07-06] MEDS: IPRATROPIUM BROM 0.5 MG/2.5ML INH SOL NEB SCH ×4 (01:19→19:03)
[2018-07-06] MEDS: ALBUTEROL SULF 2.5 MG/0.5ML(0.5%) NEB SOLN NEB SCH ×4 (01:19→19:03)
[2018-07-06] MEDS: MORPHINE SULF INJ 2 MG/ML SYRINGE 1ML IV PRN ×2 (03:14→13:53)
[2018-07-06 05:00] VITALS: BP 122/87
[2018-07-06] MEDS: POTASSIUM CHL 10 Meq TABLET PO SCH ×2 (06:01→17:49)
[2018-07-06] MEDS: SODIUM CHLOR 0.9% PF (SALINE LOCK) 10ML VIAL/SYR IV SCH ×3 (06:04→21:22)
[2018-07-06] MEDS: InsuLIN REG 1unit/0.01ml Soln (100units/ml) SC SCH ×4 (06:21→21:22)
[2018-07-06] MEDS: ACCU-CHEK COMFORT CURVE STRIP VI SCH ×4 (06:21→22:00)
[2018-07-06] MEDS: BUDESONIDE (INHALATION) 0.5 MG/2 ML NEB NEB SCH ×2 (06:51→19:03)
[2018-07-06 07:41] LABS: Basophils # (auto) 0.1 uL; Basophils % (auto) 0.5 % (0.0-2.0); Eosinophils # (auto) 0.1 uL; Eosinophils % (auto) 0.9 % (0.0-7.0); Hematocrit 47.5 % (41.0-53.0); Hemoglobin 15.5 g/dL (13.5-17.5); Lymphocytes # (auto) 1.4 uL; Lymphocytes % (auto) 11.1 % (10.0-50.0); Mean Corpuscular Hemoglobin 27.9 pg (28.0-32.0); Mean Corpuscular Hgb Conc. 32.7 g/dL (32.0-36.0); Mean Corpuscular Volume 85.2 fL (80.0-100.0); Monocytes # (auto) 1.8 uL; Monocytes % (auto) 13.9 % (0.0-12.0); Neutrophils # (auto) 9.3 uL; Neutrophils % (auto) 73.6 % (37.0-80.0); Nucleated Red Blood Cells % 0.1 %; Platelet Count (auto) 99 10^3/uL (140-450); Red Blood Cells 5.57 10^6/uL (4.5-5.90); Red Cell Distribution Width 15.2 % (11.8-14.3); White Blood Cell 12.6 10^3/uL (4.4-10.8)
[2018-07-06 08:12] LABS: Albumin 3.2 g/dL (3.4-5.0); Bilirubin, Total 3.2 mg/dL (0.2-1.0); Calcium 8.6 mg/dL (8.5-10.1); Potassium 4.3 mmol/L (3.5-5.1); Total Protein 6.2 g/dL (6.4-8.2)
[2018-07-06 09:00] VITALS: BP 114/79
[2018-07-06] MEDS: cloNIDine HCL 0.1 MG TAB PO SCH ×2 (10:00→21:20)
[2018-07-06] MEDS: MULTIPLE VITAMIN TAB PO SCH (10:23)
[2018-07-06] MEDS: FAMOTIDINE 20 MG TAB PO SCH (10:23)
[2018-07-06] MEDS: ATENOLOL 50 MG TAB PO SCH ×2 (10:23→21:21)
[2018-07-06] MEDS: CHOLECALCIFEROL (VITD3) 1,000 UNIT TAB PO SCH (10:23)
[2018-07-06] MEDS: ASPirin-EC 81 mg tab PO SCH (10:23)
[2018-07-06] MEDS: FUROSEMIDE 40 MG/4 ML VIAL IV SCH (10:24)
[2018-07-06] MEDS: ONDANSETRON HCL 4 MG/2 ML VIAL IV PRN (11:19)
[2018-07-06 13:00] VITALS: BP 109/77
[2018-07-06 16:53] VITALS: BP 106/56
[2018-07-06 20:00] VITALS: BP 114/79
[2018-07-06 21:15] VITALS: BP 135/98
[2018-07-06] MEDS: TEMAZEPAM 15 MG CAP PO PRN (21:20)
[2018-07-07] MEDS: IPRATROPIUM BROM 0.5 MG/2.5ML INH SOL NEB SCH ×4 (00:31→18:56)
[2018-07-07] MEDS: ALBUTEROL SULF 2.5 MG/0.5ML(0.5%) NEB SOLN NEB SCH ×4 (00:31→18:56)
[2018-07-07 05:16] VITALS: BP 102/62
[2018-07-07] MEDS: BUDESONIDE (INHALATION) 0.5 MG/2 ML NEB NEB SCH ×2 (06:12→18:55)
[2018-07-07] MEDS: InsuLIN REG 1unit/0.01ml Soln (100units/ml) SC SCH ×4 (07:00→22:00)
[2018-07-07] MEDS: ACCU-CHEK COMFORT CURVE STRIP VI SCH ×4 (07:06→22:00)
[2018-07-07] MEDS: POTASSIUM CHL 10 Meq TABLET PO SCH ×2 (07:10→17:27)
[2018-07-07] MEDS: SODIUM CHLOR 0.9% PF (SALINE LOCK) 10ML VIAL/SYR IV SCH ×3 (07:11→23:19)
[2018-07-07 08:00] VITALS: BP 121/83
[2018-07-07 09:12] VITALS: BP 121/83
[2018-07-07] MEDS: FUROSEMIDE 40 MG/4 ML VIAL IV SCH (09:46)
[2018-07-07] MEDS: LEVOFLOXACIN 750MG 150 ML IV SCH (09:46)
[2018-07-07] MEDS: cloNIDine HCL 0.1 MG TAB PO SCH (09:46)
[2018-07-07] MEDS: ATENOLOL 50 MG TAB PO SCH (09:47)
[2018-07-07] MEDS: MULTIPLE VITAMIN TAB PO SCH (09:47)
[2018-07-07] MEDS: ASPirin-EC 81 mg tab PO SCH (09:47)
[2018-07-07] MEDS: FAMOTIDINE 20 MG TAB PO SCH (09:47)
[2018-07-07] MEDS: CHOLECALCIFEROL (VITD3) 1,000 UNIT TAB PO SCH (09:48)
[2018-07-07] MEDS: traMADol HCL 50 MG TAB PO PRN ×2 (10:50→23:09)
[2018-07-07] MEDS: LORazepam 0.5 MG TAB PO PRN ×3 (10:50→23:10)
[2018-07-07 12:20] LABS: Basophils # (auto) 0 uL; Basophils % (auto) 0.4 % (0.0-2.0); Eosinophils # (auto) 0.1 uL; Hematocrit 48.2 % (41.0-53.0); Hemoglobin 15.7 g/dL (13.5-17.5); Lymphocytes % (auto) 9.7 % (10.0-50.0); Mean Corpuscular Hemoglobin 28.2 pg (28.0-32.0); Mean Corpuscular Hgb Conc. 32.7 g/dL (32.0-36.0); Mean Corpuscular Volume 86.2 fL (80.0-100.0); Monocytes # (auto) 1.4 uL; Monocytes % (auto) 13.5 % (0.0-12.0); Neutrophils # (auto) 7.6 uL; Neutrophils % (auto) 75.4 % (37.0-80.0); Platelet Count (auto) 96 10^3/uL (140-450); Red Blood Cells 5.59 10^6/uL (4.5-5.90); Red Cell Distribution Width 15.6 % (11.8-14.3); White Blood Cell 10.1 10^3/uL (4.4-10.8)
[2018-07-07 12:33] LABS: Calcium 8.2 mg/dL (8.5-10.1)
[2018-07-07 12:37] LABS: Albumin 2.9 g/dL (3.4-5.0); BUN/Creatinine Ratio 31.4
[2018-07-07 12:46] LABS: Bilirubin, Total 3.5 mg/dL (0.2-1.0); Total Protein 5.9 g/dL (6.4-8.2)
[2018-07-07 13:02] LABS: Potassium 4.2 mmol/L (3.5-5.1)
[2018-07-07 13:37] VITALS: BP 102/84
[2018-07-07 17:22] VITALS: BP 107/78
[2018-07-07 21:09] VITALS: BP 96/68
[2018-07-08] VITALS (7 sets, daily range): BP systolic 82–123; BP diastolic 53–79
[2018-07-08] MEDS: IPRATROPIUM BROM 0.5 MG/2.5ML INH SOL NEB SCH ×5 (00:08→23:18)
[2018-07-08] MEDS: ALBUTEROL SULF 2.5 MG/0.5ML(0.5%) NEB SOLN NEB SCH ×5 (00:08→23:18)
[2018-07-08] MEDS: cloNIDine HCL 0.1 MG TAB PO SCH ×3 (00:47→21:42)
[2018-07-08] MEDS: ATENOLOL 50 MG TAB PO SCH ×3 (00:49→21:42)
[2018-07-08] MEDS: InsuLIN REG 1unit/0.01ml Soln (100units/ml) SC SCH ×4 (06:20→21:41)
[2018-07-08] MEDS: LORazepam 0.5 MG TAB PO PRN (06:21)
[2018-07-08] MEDS: POTASSIUM CHL 10 Meq TABLET PO SCH ×2 (06:22→17:42)
[2018-07-08] MEDS: BUDESONIDE (INHALATION) 0.5 MG/2 ML NEB NEB SCH ×2 (06:22→18:59)
[2018-07-08] MEDS: SODIUM CHLOR 0.9% PF (SALINE LOCK) 10ML VIAL/SYR IV SCH ×3 (06:25→21:42)
[2018-07-08] MEDS: ACCU-CHEK COMFORT CURVE STRIP VI SCH ×4 (06:29→21:41)
[2018-07-08] MEDS ORDERED: TAMSULOSIN HYDROCHLORIDE 0.4 MG CAP PO ONE (09:45)
[2018-07-08] MEDS ORDERED: FUROSEMIDE 40 MG/4 ML VIAL IV ONE (09:45)
[2018-07-08] MEDS: FAMOTIDINE 20 MG TAB PO SCH (09:48)
[2018-07-08] MEDS: ASPirin-EC 81 mg tab PO SCH (09:49)
[2018-07-08] MEDS: MULTIPLE VITAMIN TAB PO SCH (09:49)
[2018-07-08] MEDS: CHOLECALCIFEROL (VITD3) 1,000 UNIT TAB PO SCH (09:49)
[2018-07-08] MEDS: FUROSEMIDE 40 MG/4 ML VIAL IV SCH (09:54)
[2018-07-08] MEDS: TEMAZEPAM 15 MG CAP PO PRN (21:37)
[2018-07-09] MEDS: LORazepam 0.5 MG TAB PO PRN ×2 (01:11→21:32)
[2018-07-09] MEDS: MORPHINE SULF INJ 2 MG/ML SYRINGE 1ML IV PRN ×2 (04:48→23:11)
[2018-07-09 05:00] VITALS: BP 105/76
[2018-07-09 05:57] LABS: Basophils # (auto) 0.1 uL; Basophils % (auto) 0.5 % (0.0-2.0); Eosinophils # (auto) 0.1 uL; Eosinophils % (auto) 1.1 % (0.0-7.0); Hematocrit 45.8 % (41.0-53.0); Hemoglobin 15.3 g/dL (13.5-17.5); Lymphocytes # (auto) 1.5 uL; Mean Corpuscular Hemoglobin 28.5 pg (28.0-32.0); Mean Corpuscular Hgb Conc. 33.5 g/dL (32.0-36.0); Monocytes # (auto) 1.9 uL; Monocytes % (auto) 17.6 % (0.0-12.0); Neutrophils # (auto) 7.3 uL; Neutrophils % (auto) 66.8 % (37.0-80.0); Nucleated Red Blood Cells % 0.2 %; Platelet Count (auto) 96 10^3/uL (140-450); Red Blood Cells 5.39 10^6/uL (4.5-5.90); White Blood Cell 10.9 10^3/uL (4.4-10.8)
[2018-07-09] MEDS: SODIUM CHLOR 0.9% PF (SALINE LOCK) 10ML VIAL/SYR IV SCH ×3 (06:06→21:36)
[2018-07-09] MEDS: POTASSIUM CHL 10 Meq TABLET PO SCH ×2 (06:06→18:37)
[2018-07-09 06:08] LABS: Albumin 2.8 g/dL (3.4-5.0); Calcium 8.1 mg/dL (8.5-10.1); Potassium 4.2 mmol/L (3.5-5.1)
[2018-07-09 06:10] LABS: BUN/Creatinine Ratio 26.7
[2018-07-09 06:12] LABS: Bilirubin, Total 3.4 mg/dL (0.2-1.0); Total Protein 5.8 g/dL (6.4-8.2)
[2018-07-09] MEDS: ACCU-CHEK COMFORT CURVE STRIP VI SCH ×4 (06:29→22:15)
[2018-07-09] MEDS: InsuLIN REG 1unit/0.01ml Soln (100units/ml) SC SCH ×4 (06:30→22:00)
[2018-07-09] MEDS: IPRATROPIUM BROM 0.5 MG/2.5ML INH SOL NEB SCH ×3 (07:00→19:30)
[2018-07-09] MEDS: ALBUTEROL SULF 2.5 MG/0.5ML(0.5%) NEB SOLN NEB SCH ×3 (07:00→19:29)
[2018-07-09] MEDS: BUDESONIDE (INHALATION) 0.5 MG/2 ML NEB NEB SCH ×2 (07:00→19:29)
[2018-07-09 09:00] VITALS: BP 112/78
[2018-07-09] MEDS: LEVOFLOXACIN 750MG 150 ML IV SCH (10:26)
[2018-07-09] MEDS: FUROSEMIDE 40 MG/4 ML VIAL IV SCH (10:27)
[2018-07-09] MEDS: CHOLECALCIFEROL (VITD3) 1,000 UNIT TAB PO SCH (10:27)
[2018-07-09] MEDS: ATENOLOL 50 MG TAB PO SCH ×2 (10:28→21:35)
[2018-07-09] MEDS: FAMOTIDINE 20 MG TAB PO SCH (10:28)
[2018-07-09] MEDS: cloNIDine HCL 0.1 MG TAB PO SCH ×2 (10:29→21:34)
[2018-07-09] MEDS: ASPirin-EC 81 mg tab PO SCH (10:29)
[2018-07-09] MEDS: MULTIPLE VITAMIN TAB PO SCH (10:29)
[2018-07-09 13:00] VITALS: BP 101/79
[2018-07-09] MEDS: ONDANSETRON HCL 4 MG/2 ML VIAL IV PRN (13:35)
[2018-07-09 17:00] VITALS: BP 103/55
[2018-07-09] MEDS: DOCUSATE SOD 100 MG CAP PO PRN (21:32)
[2018-07-09 22:00] VITALS: BP 104/76
[2018-07-10] MEDS: IPRATROPIUM BROM 0.5 MG/2.5ML INH SOL NEB SCH ×3 (00:13→12:15)
[2018-07-10] MEDS: ALBUTEROL SULF 2.5 MG/0.5ML(0.5%) NEB SOLN NEB SCH ×3 (00:13→12:15)
[2018-07-10 05:12] VITALS: BP 92/60
[2018-07-10] MEDS: BUDESONIDE (INHALATION) 0.5 MG/2 ML NEB NEB SCH (05:58)
[2018-07-10] MEDS: SODIUM CHLOR 0.9% PF (SALINE LOCK) 10ML VIAL/SYR IV SCH ×2 (06:24→14:00)
[2018-07-10] MEDS: POTASSIUM CHL 10 Meq TABLET PO SCH (06:24)
[2018-07-10] MEDS: ACCU-CHEK COMFORT CURVE STRIP VI SCH ×2 (06:24→11:50)
[2018-07-10 06:25] LABS: Calcium 8.3 mg/dL (8.5-10.1); Potassium 4.3 mmol/L (3.5-5.1)
[2018-07-10] MEDS: InsuLIN REG 1unit/0.01ml Soln (100units/ml) SC SCH ×2 (06:32→11:50)
[2018-07-10 07:30] VITALS: BP 106/74
[2018-07-10 08:00] VITALS: BP 102/70
[2018-07-10] MEDS: traMADol HCL 50 MG TAB PO PRN (08:58)
[2018-07-10] MEDS: LORazepam 0.5 MG TAB PO PRN (08:58)
[2018-07-10] MEDS: cloNIDine HCL 0.1 MG TAB PO SCH (10:00)
[2018-07-10] MEDS: ATENOLOL 50 MG TAB PO SCH (10:00)
[2018-07-10] MEDS: FUROSEMIDE 40 MG/4 ML VIAL IV SCH (10:00)
[2018-07-10] MEDS: FAMOTIDINE 20 MG TAB PO SCH (10:22)
[2018-07-10] MEDS: ASPirin-EC 81 mg tab PO SCH (10:22)
[2018-07-10] MEDS: CHOLECALCIFEROL (VITD3) 1,000 UNIT TAB PO SCH (10:22)
[2018-07-10] MEDS: MULTIPLE VITAMIN TAB PO SCH (10:22)
[2018-07-10 11:43] VITALS: BP 110/69
[2018-07-10 11:51] VITALS: BP 106/74
== END 2018-07-10 14:45 | disposition home or self-care (01) | DRG 871 ==
LOC: EDBD 11:54 → ER 11:54 → TELE-WESTW 11:55
PROVIDERS: ADMIT Internal Medicine; ATTEND Internal Medicine
DX: A41.9 Sepsis, unspecified organism (principal); I50.43 Acute on chronic combined systolic (congestive) and diastolic (congestive) heart failure; J18.1 Lobar pneumonia, unspecified organism; N17.0 Acute kidney failure with tubular necrosis; E44.1 Mild protein-calorie malnutrition; I13.0 Hypertensive heart and chronic kidney disease with heart failure and stage 1 through stage 4 chronic kidney disease, or unspecified chronic kidney disease; D68.9 Coagulation defect, unspecified; J45.901 Unspecified asthma with (acute) exacerbation; I31.3 Pericardial effusion (noninflammatory); J98.11 Atelectasis; R17 Unspecified jaundice; R18.8 Other ascites; I25.10 Atherosclerotic heart disease of native coronary artery without angina pectoris; E11.21 Type 2 diabetes mellitus with diabetic nephropathy; E11.22 Type 2 diabetes mellitus with diabetic chronic kidney disease; N18.3 Chronic kidney disease, stage 3 (moderate); E78.5 Hyperlipidemia, unspecified; E83.51 Hypocalcemia; I25.2 Old myocardial infarction; Z82.49 Family history of ischemic heart disease and other diseases of the circulatory system; Z83.3 Family history of diabetes mellitus; Z85.46 Personal history of malignant neoplasm of prostate; Z95.0 Presence of cardiac pacemaker; Z68.35 Body mass index [BMI] 35.0-35.9, adult
CPT/HCPCS: 36415; 71045; 74176; 76775; 80048; 80053; 81001; 82306; 82570; 82962; 83036; 83605; 83735; 83880; 83970; 84100; 84154; 84300; 84443; 84484; 84550; 85007; 85025; 85027; 85610; 85730; 86803; 87040; 87070; 87086; 87205; 87340; 93005; 94640; 96365; 96375; J0696; J1815; J1956; J2405; J3490

== ENCOUNTER 2018-07-12 01:40 | Emergency (ER) | payer OTHER ==
[~2018-07-12] VITALS: Ht 165.1 cm; Wt 108.9 kg
[~2018-07-12 01:40] MED LIST changes: +BUSP5TAB51 PO; +CHOL20007 PO; +CLON0.1T PO; +DICL50TA2 PO; +DOCU1CAP54 PO; -FAMOTIDINE 20 MG TAB PO SCH; +FURO20TA PO; -GABA300C10 PO; -HYDR25TA4 PO; -LORA-205 PO; +LORA2TAB10 PO; +LORA2TAB89 PO; -LOSA-46 PO; +MECL1TAB42 PO; +MELO1TAB56 PO; +POTA10TA51 PO; +RANI150C11 PO; +SERT-274 PO; +TAM04C PO; +TEMA15CA91 PO; +TRAM50TA2 PO; +[UNRECOGNIZED DRUG - CODE] PO
[2018-07-12 02:51] LABS: Basophils # (auto) 0.1 uL; Basophils % (auto) 0.5 % (0.0-2.0); Eosinophils # (auto) 0.1 uL; Eosinophils % (auto) 0.7 % (0.0-7.0); Hematocrit 47.6 % (41.0-53.0); Hemoglobin 15.5 g/dL (13.5-17.5); Lymphocytes # (auto) 1.4 uL; Lymphocytes % (auto) 14.2 % (10.0-50.0); Mean Corpuscular Hemoglobin 27.7 pg (28.0-32.0); Mean Corpuscular Hgb Conc. 32.6 g/dL (32.0-36.0); Mean Corpuscular Volume 84.9 fL (80.0-100.0); Monocytes # (auto) 1.5 uL; Neutrophils % (auto) 69.6 % (37.0-80.0); Nucleated Red Blood Cells % 0.1 %; Platelet Count (auto) 91 10^3/uL (140-450); White Blood Cell 10.1 10^3/uL (4.4-10.8)
[2018-07-12 02:53] LABS: Albumin 3.1 g/dL (3.4-5.0); Calcium 8.6 mg/dL (8.5-10.1)
[2018-07-12 02:56] LABS: Bilirubin, Total 4.5 mg/dL (0.2-1.0); Total Protein 6.1 g/dL (6.4-8.2)
[2018-07-12] MEDS ORDERED: KETOROLAC TROMETH 30 MG/ML 1ML VIAL IV ONE (03:00)
[2018-07-12] MEDS ORDERED: SODIUM CHLORIDE 0.9% 1,000 ML IV ONE (04:00)
[2018-07-12 06:00] VITALS: BP 140/95
== END 2018-07-12 06:46 | disposition home or self-care (01) ==
LOC: ER 01:40
DX: T83.098A Other mechanical complication of other urinary catheter, initial encounter (principal); I25.10 Atherosclerotic heart disease of native coronary artery without angina pectoris; E11.9 Type 2 diabetes mellitus without complications; E78.5 Hyperlipidemia, unspecified; I10 Essential (primary) hypertension; Z79.899 Other long term (current) drug therapy; Y84.6 Urinary catheterization as the cause of abnormal reaction of the patient, or of later complication, without mention of misadventure at the time of the procedure; Y92.89 Other specified places as the place of occurrence of the external cause
CPT/HCPCS: 36415; 51702; 80053; 83880; 85025; 96374; 99285; J1885; 96361

== ENCOUNTER 2018-07-13 18:13 | Inpatient (IN) | payer OTHER ==
[~2018-07-13] VITALS: Ht 167.6 cm; Wt 92.7 kg
[2018-07-13] MEDS ORDERED: SODIUM CHLORIDE 0.9% 1,000 ML IVB ONE (19:21)
[2018-07-13] MEDS ORDERED: cefTRIAXone 1GM/10ml IVPUSH 10 ML IV ONE (19:30)
[2018-07-13 19:50] LABS: Basophils # (auto) 0 uL; Basophils % (auto) 0.4 % (0.0-2.0); Eosinophils # (auto) 0 uL; Eosinophils % (auto) 0.4 % (0.0-7.0); Hemoglobin 14.7 g/dL (13.5-17.5); Lymphocytes # (auto) 1.2 uL; Lymphocytes % (auto) 10.8 % (10.0-50.0); Mean Corpuscular Hemoglobin 28.1 pg (28.0-32.0); Mean Corpuscular Hgb Conc. 32.8 g/dL (32.0-36.0); Mean Corpuscular Volume 85.7 fL (80.0-100.0); Monocytes # (auto) 1.4 uL; Monocytes % (auto) 12.4 % (0.0-12.0); Neutrophils # (auto) 8.7 uL; Nucleated Red Blood Cells % 0.1 %; Platelet Count (auto) 76 10^3/uL (140-450); Red Blood Cells 5.25 10^6/uL (4.5-5.90); Red Cell Distribution Width 16.2 % (11.8-14.3); White Blood Cell 11.5 10^3/uL (4.4-10.8)
[2018-07-13 20:06] LABS: INR 1.52 (0.9-1.15); Partial Thromboplastin Time 30.1 sec (23.78-33.04); Prothrombin Time 15.9 sec (9.27-12.13)
[2018-07-13 20:19] LABS: Magnesium 2.2 mg/dL (1.6-2.6)
[2018-07-13 20:21] LABS: Lactic Acid w/Reflex 2.6 mmol/L (0.4-2.0)
[2018-07-13 20:22] LABS: BUN/Creatinine Ratio 22.2; Calcium 8.1 mg/dL (8.5-10.1); Potassium 4.1 mmol/L (3.5-5.1); Total Protein 6.1 g/dL (6.4-8.2)
[2018-07-13 20:35] LABS: Urine Bacteria MANY /hpf (None Seen); Urine Blood 3+ /uL (Negative); Urine Hyaline Cast MOD /lpf (0 - 2); Urine Mucus FEW (None Seen); Urine Specific Gravity 1.022 (1.001-1.035); Urine WBC 301 /hpf (0 - 3); Urine WBC Clumps PRESENT /hpf (None Seen)
[2018-07-13] MEDS ORDERED: AZITHROMYCIN 500MG/ 250ML 250 ML IV ONE (21:15)
[2018-07-13] MEDS ORDERED: FUROSEMIDE 40 MG/4 ML VIAL IV ONE (22:00)
[2018-07-13] MEDS ORDERED: NITROGLYCERIN 0.4 MG SL TAB SL PRN (22:00)
[2018-07-13] MEDS: ATENOLOL 25 MG TAB PO SCH (22:00)
[2018-07-13] MEDS ORDERED: ALBUTEROL SULF 2.5 MG/0.5ML(0.5%) NEB SOLN NEB PRN (22:00)
[2018-07-13] MEDS ORDERED: cloNIDine HCL 0.1 MG TAB PO PRN (22:00)
[2018-07-13] MEDS ORDERED: DEXTROSE (50%) 50ML SYRG IV PRN (22:00)
[2018-07-13] MEDS ORDERED: MORPHINE SULFATE 4 MG/ML SYR/VIAL IV PRN (22:00)
[2018-07-13 22:28] VITALS: BP 109/66
[2018-07-13] MEDS: ONDANSETRON HCL 4 MG/2 ML VIAL IV PRN (22:32)
[2018-07-13] MEDS: HYDROcodone-ACET 5/325MG TAB PO PRN (23:05)
[2018-07-13] MEDS: InsuLIN REG 1unit/0.01ml Soln (100units/ml) SC SCH (23:34)
[2018-07-13] MEDS: ACCU-CHEK COMFORT CURVE STRIP VI SCH (23:37)
[2018-07-14] VITALS: BP 110/71
[2018-07-14 01:36] LABS: Albumin 2.9 g/dL (3.4-5.0); BUN/Creatinine Ratio 21.1; Calcium 7.7 mg/dL (8.5-10.1); Potassium 3.8 mmol/L (3.5-5.1)
[2018-07-14 01:40] LABS: Bilirubin, Total 3.7 mg/dL (0.2-1.0); Total Protein 5.6 g/dL (6.4-8.2)
[2018-07-14] MEDS: HYDROcodone-ACET 5/325MG TAB PO PRN ×2 (04:17→20:17)
[2018-07-14 05:00] VITALS: BP 110/54
[2018-07-14] MEDS: InsuLIN REG 1unit/0.01ml Soln (100units/ml) SC SCH ×4 (05:57→22:24)
[2018-07-14] MEDS: ACCU-CHEK COMFORT CURVE STRIP VI SCH ×4 (05:57→22:24)
[2018-07-14] MEDS ORDERED: FUROSEMIDE 20 MG/2 ML VIAL IV SCH (06:00)
[2018-07-14 07:41] LABS: Basophils # (auto) 0 uL; Basophils % (auto) 0.3 % (0.0-2.0); Eosinophils # (auto) 0.1 uL; Eosinophils % (auto) 0.4 % (0.0-7.0); Hemoglobin 15.3 g/dL (13.5-17.5); Lymphocytes # (auto) 2.1 uL; Mean Corpuscular Hemoglobin 27.7 pg (28.0-32.0); Mean Corpuscular Hgb Conc. 32.6 g/dL (32.0-36.0); Monocytes # (auto) 1.8 uL; Monocytes % (auto) 13.9 % (0.0-12.0); Neutrophils # (auto) 8.9 uL; Neutrophils % (auto) 69.4 % (37.0-80.0); Nucleated Red Blood Cells % 0.1 %; Platelet Count (auto) 83 10^3/uL (140-450); Red Blood Cells 5.53 10^6/uL (4.5-5.90); Red Cell Distribution Width 16.2 % (11.8-14.3); White Blood Cell 12.9 10^3/uL (4.4-10.8)
[2018-07-14 09:32] VITALS: BP 141/91
[2018-07-14] MEDS: AZITHROMYCIN 500MG/ 250ML 250 ML IV SCH (10:37)
[2018-07-14] MEDS: cefTRIAXone 1GM/10ml IVPUSH 10 ML IV SCH (10:38)
[2018-07-14] MEDS: ENOXAPARIN SOD 30 MG/0.3 ML SYRINGE SC SCH (10:38)
[2018-07-14] MEDS: ATENOLOL 25 MG TAB PO SCH ×2 (10:39→20:20)
[2018-07-14] MEDS: LOSARTAN POTASSIUM 50 MG TAB PO SCH (10:41)
[2018-07-14] MEDS: SERTRALINE HCL 50 MG TAB PO SCH (10:42)
[2018-07-14] MEDS: PANTOPRAZOLE 40 MG TAB PO SCH (10:42)
[2018-07-14] MEDS ORDERED: predniSONE 20 MG TAB PO SCH (10:45)
[2018-07-14] MEDS: IPRATROPIUM BROM 0.5 MG/2.5ML INH SOL NEB SCH ×2 (11:41→18:57)
[2018-07-14] MEDS: ALBUTEROL SULF 2.5 MG/0.5ML(0.5%) NEB SOLN NEB SCH ×2 (11:42→18:57)
[2018-07-14 12:01] LABS: INR 1.49 (0.9-1.15); Prothrombin Time 15.6 sec (9.27-12.13)
[2018-07-14] MEDS: ONDANSETRON HCL 4 MG/2 ML VIAL IV PRN (13:18)
[2018-07-14 14:49] VITALS: BP 91/47
[2018-07-14 15:58] VITALS: BP 117/96
[2018-07-14] MEDS ORDERED: WARFARIN SODIUM 5 MG TAB PO ONE (17:00)
[2018-07-14] MEDS: TEMAZEPAM 15 MG CAP PO PRN (20:17)
[2018-07-14 21:58] VITALS: BP 124/97
[2018-07-14] MEDS ORDERED: LORazepam 0.5 MG TAB PO ONE (22:15)
[2018-07-15] MEDS: ALBUTEROL SULF 2.5 MG/0.5ML(0.5%) NEB SOLN NEB SCH ×4 (00:38→19:26)
[2018-07-15] MEDS: IPRATROPIUM BROM 0.5 MG/2.5ML INH SOL NEB SCH ×4 (00:38→19:26)
[2018-07-15 05:00] VITALS: BP 122/89
[2018-07-15] MEDS: InsuLIN REG 1unit/0.01ml Soln (100units/ml) SC SCH ×4 (05:24→20:37)
[2018-07-15] MEDS: ACCU-CHEK COMFORT CURVE STRIP VI SCH ×4 (05:25→20:27)
[2018-07-15 06:45] LABS: Basophils # (auto) 0 uL; Basophils % (auto) 0.1 % (0.0-2.0); Eosinophils # (auto) 0 uL; Hematocrit 44.6 % (41.0-53.0); Hemoglobin 14.9 g/dL (13.5-17.5); Lymphocytes # (auto) 0.6 uL; Lymphocytes % (auto) 11.1 % (10.0-50.0); Mean Corpuscular Hemoglobin 28.6 pg (28.0-32.0); Mean Corpuscular Hgb Conc. 33.4 g/dL (32.0-36.0); Mean Corpuscular Volume 85.8 fL (80.0-100.0); Monocytes # (auto) 0.5 uL; Monocytes % (auto) 9.4 % (0.0-12.0); Neutrophils # (auto) 4.3 uL; Neutrophils % (auto) 79.4 % (37.0-80.0); Nucleated Red Blood Cells % 0.1 %; Platelet Count (auto) 79 10^3/uL (140-450); Red Cell Distribution Width 16.5 % (11.8-14.3); White Blood Cell 5.5 10^3/uL (4.4-10.8)
[2018-07-15 07:10] LABS: BUN/Creatinine Ratio 22.7; Calcium 8.4 mg/dL (8.5-10.1); Potassium 4.5 mmol/L (3.5-5.1)
[2018-07-15 07:20] LABS: Albumin 3.1 g/dL (3.4-5.0); Bilirubin, Total 3.1 mg/dL (0.2-1.0); Magnesium 2.2 mg/dL (1.6-2.6); Total Protein 6.4 g/dL (6.4-8.2)
[2018-07-15 07:30] LABS: INR 1.39 (0.9-1.15); Prothrombin Time 14.6 sec (9.27-12.13)
[2018-07-15 09:00] VITALS: BP 114/77
[2018-07-15] MEDS: cefTRIAXone 1GM/10ml IVPUSH 10 ML IV SCH (11:18)
[2018-07-15] MEDS: AZITHROMYCIN 500MG/ 250ML 250 ML IV SCH (11:18)
[2018-07-15] MEDS: ATENOLOL 25 MG TAB PO SCH ×2 (11:19→20:27)
[2018-07-15] MEDS: SERTRALINE HCL 50 MG TAB PO SCH (11:20)
[2018-07-15] MEDS: PANTOPRAZOLE 40 MG TAB PO SCH (11:20)
[2018-07-15] MEDS: LOSARTAN POTASSIUM 50 MG TAB PO SCH (11:20)
[2018-07-15] MEDS: ENOXAPARIN SOD 30 MG/0.3 ML SYRINGE SC SCH (11:21)
[2018-07-15 12:00] VITALS: BP 124/91
[2018-07-15] MEDS ORDERED: LORazepam 0.5 MG TAB PO ONE (13:45)
[2018-07-15] MEDS: HYDROcodone-ACET 5/325MG TAB PO PRN (15:28)
[2018-07-15 16:31] VITALS: BP 105/66
[2018-07-15] MEDS: LORazepam 0.5 MG TAB PO PRN (20:28)
[2018-07-15 20:30] VITALS: BP 104/66
[2018-07-15 22:00] VITALS: BP 113/75
[2018-07-16] MEDS: ALBUTEROL SULF 2.5 MG/0.5ML(0.5%) NEB SOLN NEB SCH ×4 (00:53→19:33)
[2018-07-16] MEDS: IPRATROPIUM BROM 0.5 MG/2.5ML INH SOL NEB SCH ×4 (00:53→19:33)
[2018-07-16 05:00] VITALS: BP 122/83
[2018-07-16] MEDS: InsuLIN REG 1unit/0.01ml Soln (100units/ml) SC SCH ×4 (05:17→23:48)
[2018-07-16] MEDS: ACCU-CHEK COMFORT CURVE STRIP VI SCH ×4 (05:17→23:48)
[2018-07-16 06:37] LABS: Basophils # (auto) 0 uL; Basophils % (auto) 0.4 % (0.0-2.0); Eosinophils # (auto) 0.1 uL; Eosinophils % (auto) 0.9 % (0.0-7.0); Hematocrit 43.8 % (41.0-53.0); Hemoglobin 14.7 g/dL (13.5-17.5); Lymphocytes # (auto) 1.2 uL; Lymphocytes % (auto) 9.7 % (10.0-50.0); Mean Corpuscular Hemoglobin 28.8 pg (28.0-32.0); Mean Corpuscular Hgb Conc. 33.5 g/dL (32.0-36.0); Mean Corpuscular Volume 85.9 fL (80.0-100.0); Monocytes # (auto) 1.5 uL; Monocytes % (auto) 11.7 % (0.0-12.0); Neutrophils # (auto) 9.8 uL; Neutrophils % (auto) 77.3 % (37.0-80.0); Nucleated Red Blood Cells % 0.1 %; Platelet Count (auto) 81 10^3/uL (140-450); Red Cell Distribution Width 16.4 % (11.8-14.3); White Blood Cell 12.7 10^3/uL (4.4-10.8)
[2018-07-16 06:42] LABS: INR 1.46 (0.9-1.15); Prothrombin Time 15.3 sec (9.27-12.13)
[2018-07-16 06:58] LABS: BUN/Creatinine Ratio 25.8; Calcium 8.6 mg/dL (8.5-10.1); Potassium 4.1 mmol/L (3.5-5.1)
[2018-07-16 09:00] VITALS: BP 130/76
[2018-07-16] MEDS: AZITHROMYCIN 500MG/ 250ML 250 ML IV SCH (09:38)
[2018-07-16] MEDS: cefTRIAXone 1GM/10ml IVPUSH 10 ML IV SCH (09:39)
[2018-07-16] MEDS: SERTRALINE HCL 50 MG TAB PO SCH (09:39)
[2018-07-16] MEDS: ATENOLOL 25 MG TAB PO SCH ×2 (09:39→22:00)
[2018-07-16] MEDS: predniSONE 20 MG TAB PO SCH (09:40)
[2018-07-16] MEDS: PANTOPRAZOLE 40 MG TAB PO SCH (09:40)
[2018-07-16] MEDS: LOSARTAN POTASSIUM 50 MG TAB PO SCH (09:41)
[2018-07-16] MEDS: ENOXAPARIN SOD 30 MG/0.3 ML SYRINGE SC SCH (09:41)
[2018-07-16] MEDS: LORazepam 0.5 MG TAB PO PRN ×2 (09:59→18:16)
[2018-07-16] MEDS ORDERED: TAMSULOSIN HYDROCHLORIDE 0.4 MG CAP PO ONE (10:00)
[2018-07-16] MEDS: HYDROcodone-ACET 5/325MG TAB PO PRN (12:52)
[2018-07-16 13:05] VITALS: BP 100/58
[2018-07-16 16:26] VITALS: BP 104/70
[2018-07-16] MEDS: TAMSULOSIN HYDROCHLORIDE 0.4 MG CAP PO SCH (18:11)
[2018-07-16 22:00] VITALS: BP 125/75
[2018-07-17] MEDS: ALBUTEROL SULF 2.5 MG/0.5ML(0.5%) NEB SOLN NEB SCH ×4 (00:37→18:08)
[2018-07-17] MEDS: IPRATROPIUM BROM 0.5 MG/2.5ML INH SOL NEB SCH ×4 (00:37→18:08)
[2018-07-17 05:00] VITALS: BP 150/89
[2018-07-17] MEDS: ACCU-CHEK COMFORT CURVE STRIP VI SCH ×3 (06:05→17:25)
[2018-07-17] MEDS: InsuLIN REG 1unit/0.01ml Soln (100units/ml) SC SCH ×3 (06:05→17:25)
[2018-07-17 06:51] LABS: Basophils # (auto) 0 uL; Eosinophils # (auto) 0 uL; Eosinophils % (auto) 0.1 % (0.0-7.0); Hematocrit 46.5 % (41.0-53.0); Hemoglobin 15.2 g/dL (13.5-17.5); Lymphocytes # (auto) 0.6 uL; Lymphocytes % (auto) 8.3 % (10.0-50.0); Mean Corpuscular Hemoglobin 28.1 pg (28.0-32.0); Mean Corpuscular Hgb Conc. 32.7 g/dL (32.0-36.0); Monocytes # (auto) 0.7 uL; Monocytes % (auto) 8.9 % (0.0-12.0); Neutrophils # (auto) 6.2 uL; Neutrophils % (auto) 82.7 % (37.0-80.0); Nucleated Red Blood Cells % 0.1 %; Platelet Count (auto) 84 10^3/uL (140-450); Red Cell Distribution Width 16.6 % (11.8-14.3); White Blood Cell 7.5 10^3/uL (4.4-10.8)
[2018-07-17 07:06] LABS: INR 1.35 (0.9-1.15); Prothrombin Time 14.2 sec (9.27-12.13)
[2018-07-17 07:10] LABS: Calcium 8.3 mg/dL (8.5-10.1); Potassium 4.8 mmol/L (3.5-5.1)
[2018-07-17 07:13] LABS: BUN/Creatinine Ratio 24.1
[2018-07-17 07:29] VITALS: BP 150/89
[2018-07-17 08:53] VITALS: BP 103/77
[2018-07-17] MEDS: cefTRIAXone 1GM/10ml IVPUSH 10 ML IV SCH (09:48)
[2018-07-17] MEDS: ATENOLOL 25 MG TAB PO SCH ×2 (10:00→21:39)
[2018-07-17] MEDS: LOSARTAN POTASSIUM 50 MG TAB PO SCH (10:00)
[2018-07-17] MEDS: predniSONE 20 MG TAB PO SCH (10:24)
[2018-07-17] MEDS: AZITHROMYCIN 500MG/ 250ML 250 ML IV SCH (10:24)
[2018-07-17] MEDS: SERTRALINE HCL 50 MG TAB PO SCH (10:25)
[2018-07-17] MEDS: PANTOPRAZOLE 40 MG TAB PO SCH (10:25)
[2018-07-17] MEDS: ENOXAPARIN SOD 30 MG/0.3 ML SYRINGE SC SCH (10:26)
[2018-07-17 12:58] VITALS: BP 90/63
[2018-07-17 16:51] VITALS: BP 122/71
[2018-07-17] MEDS: TAMSULOSIN HYDROCHLORIDE 0.4 MG CAP PO SCH (17:25)
[2018-07-17] MEDS: LORazepam 0.5 MG TAB PO PRN (21:40)
[2018-07-17 22:00] VITALS: BP 117/78
[2018-07-17] MEDS: HYDROcodone-ACET 5/325MG TAB PO PRN (23:38)
[2018-07-18] MEDS: InsuLIN REG 1unit/0.01ml Soln (100units/ml) SC SCH ×4 (00:19→17:50)
[2018-07-18] MEDS: ACCU-CHEK COMFORT CURVE STRIP VI SCH ×4 (00:19→17:50)
[2018-07-18] MEDS: ALBUTEROL SULF 2.5 MG/0.5ML(0.5%) NEB SOLN NEB SCH ×4 (00:30→19:17)
[2018-07-18] MEDS: IPRATROPIUM BROM 0.5 MG/2.5ML INH SOL NEB SCH ×4 (00:30→19:17)
[2018-07-18 05:00] VITALS: BP 119/69
[2018-07-18 07:32] LABS: Basophils # (auto) 0 uL; Basophils % (auto) 0.1 % (0.0-2.0); Eosinophils # (auto) 0 uL; Eosinophils % (auto) 0.1 % (0.0-7.0); Hematocrit 44.8 % (41.0-53.0); Lymphocytes # (auto) 0.9 uL; Lymphocytes % (auto) 9.5 % (10.0-50.0); Mean Corpuscular Hemoglobin 28.8 pg (28.0-32.0); Mean Corpuscular Hgb Conc. 33.6 g/dL (32.0-36.0); Mean Corpuscular Volume 85.8 fL (80.0-100.0); Monocytes # (auto) 0.8 uL; Monocytes % (auto) 8.4 % (0.0-12.0); Neutrophils # (auto) 7.6 uL; Neutrophils % (auto) 81.9 % (37.0-80.0); Nucleated Red Blood Cells % 0.1 %; Platelet Count (auto) 92 10^3/uL (140-450); Red Blood Cells 5.22 10^6/uL (4.5-5.90); Red Cell Distribution Width 16.6 % (11.8-14.3); White Blood Cell 9.3 10^3/uL (4.4-10.8)
[2018-07-18 07:43] LABS: BUN/Creatinine Ratio 27.1; Calcium 8.5 mg/dL (8.5-10.1)
[2018-07-18] MEDS: cefTRIAXone 1GM/10ml IVPUSH 10 ML IV SCH (08:41)
[2018-07-18] MEDS: HYDROcodone-ACET 5/325MG TAB PO PRN (08:41)
[2018-07-18 09:00] VITALS: BP 104/76
[2018-07-18] MEDS ORDERED: predniSONE 20 MG TAB PO SCH (10:00)
[2018-07-18] MEDS: ATENOLOL 25 MG TAB PO SCH ×2 (10:00→21:38)
[2018-07-18] MEDS: LOSARTAN POTASSIUM 50 MG TAB PO SCH (10:00)
[2018-07-18] MEDS: AZITHROMYCIN 250 MG TAB PO SCH (11:15)
[2018-07-18] MEDS: PANTOPRAZOLE 40 MG TAB PO SCH (11:15)
[2018-07-18] MEDS: SERTRALINE HCL 50 MG TAB PO SCH (11:16)
[2018-07-18] MEDS: ENOXAPARIN SOD 30 MG/0.3 ML SYRINGE SC SCH (11:16)
[2018-07-18 13:00] VITALS: BP 119/74
[2018-07-18] MEDS: ONDANSETRON HCL 4 MG/2 ML VIAL IV PRN (14:24)
[2018-07-18] MEDS: LORazepam 0.5 MG TAB PO PRN (14:24)
[2018-07-18 17:00] VITALS: BP 140/81
[2018-07-18] MEDS: TAMSULOSIN HYDROCHLORIDE 0.4 MG CAP PO SCH (17:50)
[2018-07-18 20:14] VITALS: BP 112/72
[2018-07-18] MEDS: TEMAZEPAM 15 MG CAP PO PRN (21:38)
[2018-07-18 21:56] VITALS: BP 112/72
[2018-07-19] MEDS: ALBUTEROL SULF 2.5 MG/0.5ML(0.5%) NEB SOLN NEB SCH ×4 (00:46→19:16)
[2018-07-19] MEDS: IPRATROPIUM BROM 0.5 MG/2.5ML INH SOL NEB SCH ×4 (00:46→19:16)
[2018-07-19] MEDS: ACCU-CHEK COMFORT CURVE STRIP VI SCH ×5 (00:57→22:33)
[2018-07-19] MEDS: InsuLIN REG 1unit/0.01ml Soln (100units/ml) SC SCH ×5 (00:57→22:33)
[2018-07-19 04:25] LABS: Urine Bacteria NONE SEEN /hpf (None Seen); Urine Blood TRACE /uL (Negative); Urine Specific Gravity 1.017 (1.001-1.035); Urine WBC 2 /hpf (0 - 3)
[2018-07-19 05:12] LABS: Creatinine, Urine 84.1 mg/dL (30.0-125.0); Protein, Urine 15.7 mg/dL (0.0-11.9)
[2018-07-19 05:22] VITALS: BP 120/79
[2018-07-19 07:39] LABS: Basophils # (auto) 0 uL; Basophils % (auto) 0.2 % (0.0-2.0); Eosinophils # (auto) 0 uL; Eosinophils % (auto) 0.1 % (0.0-7.0); Hematocrit 43.3 % (41.0-53.0); Hemoglobin 14.4 g/dL (13.5-17.5); Lymphocytes % (auto) 12.1 % (10.0-50.0); Mean Corpuscular Hemoglobin 28.6 pg (28.0-32.0); Mean Corpuscular Hgb Conc. 33.3 g/dL (32.0-36.0); Monocytes # (auto) 0.8 uL; Monocytes % (auto) 9.7 % (0.0-12.0); Neutrophils # (auto) 6.3 uL; Neutrophils % (auto) 77.9 % (37.0-80.0); Nucleated Red Blood Cells % 0.2 %; Platelet Count (auto) 88 10^3/uL (140-450); Red Blood Cells 5.04 10^6/uL (4.5-5.90); Red Cell Distribution Width 16.7 % (11.8-14.3); White Blood Cell 8.1 10^3/uL (4.4-10.8)
[2018-07-19 07:57] LABS: BUN/Creatinine Ratio 28.4; Calcium 7.9 mg/dL (8.5-10.1)
[2018-07-19 08:00] VITALS: BP 133/78
[2018-07-19] MEDS: cefTRIAXone 1GM/10ml IVPUSH 10 ML IV SCH (09:57)
[2018-07-19] MEDS: ENOXAPARIN SOD 30 MG/0.3 ML SYRINGE SC SCH (09:57)
[2018-07-19] MEDS: SERTRALINE HCL 50 MG TAB PO SCH (09:58)
[2018-07-19] MEDS: predniSONE 20 MG TAB PO SCH (09:59)
[2018-07-19] MEDS: LOSARTAN POTASSIUM 50 MG TAB PO SCH (09:59)
[2018-07-19] MEDS: PANTOPRAZOLE 40 MG TAB PO SCH (09:59)
[2018-07-19] MEDS: ATENOLOL 25 MG TAB PO SCH ×2 (10:00→22:34)
[2018-07-19] MEDS: AZITHROMYCIN 250 MG TAB PO SCH (10:04)
[2018-07-19] MEDS: LORazepam 0.5 MG TAB PO PRN (10:05)
[2018-07-19 16:44] VITALS: BP 109/72
[2018-07-19] MEDS: TAMSULOSIN HYDROCHLORIDE 0.4 MG CAP PO SCH (18:07)
[2018-07-19] MEDS: ACETAMINOPHEN 325 MG TAB PO PRN (18:43)
[2018-07-19 22:00] VITALS: BP 114/71
[2018-07-20] MEDS: HYDROcodone-ACET 5/325MG TAB PO PRN ×3 (00:21→16:59)
[2018-07-20] MEDS: ALBUTEROL SULF 2.5 MG/0.5ML(0.5%) NEB SOLN NEB SCH ×5 (01:08→23:36)
[2018-07-20] MEDS: IPRATROPIUM BROM 0.5 MG/2.5ML INH SOL NEB SCH ×5 (01:08→23:36)
[2018-07-20] MEDS: LORazepam 0.5 MG TAB PO PRN (05:40)
[2018-07-20 06:10] VITALS: BP 117/80
[2018-07-20] MEDS: InsuLIN REG 1unit/0.01ml Soln (100units/ml) SC SCH ×4 (06:13→23:40)
[2018-07-20] MEDS: ACCU-CHEK COMFORT CURVE STRIP VI SCH ×4 (06:14→23:41)
[2018-07-20 07:30] VITALS: BP 117/80
[2018-07-20 09:00] VITALS: BP 100/76
[2018-07-20] MEDS: ENOXAPARIN SOD 30 MG/0.3 ML SYRINGE SC SCH (09:36)
[2018-07-20] MEDS: cefTRIAXone 1GM/10ml IVPUSH 10 ML IV SCH (09:37)
[2018-07-20] MEDS: PANTOPRAZOLE 40 MG TAB PO SCH (09:38)
[2018-07-20] MEDS: ATENOLOL 25 MG TAB PO SCH (09:38)
[2018-07-20] MEDS: AZITHROMYCIN 250 MG TAB PO SCH (09:38)
[2018-07-20] MEDS: SERTRALINE HCL 50 MG TAB PO SCH (09:38)
[2018-07-20] MEDS: predniSONE 20 MG TAB PO SCH (09:38)
[2018-07-20] MEDS: LOSARTAN POTASSIUM 50 MG TAB PO SCH (09:40)
[2018-07-20 13:00] VITALS: BP 108/74
[2018-07-20 13:07] LABS: Hematocrit 45.3 % (41.0-53.0); Hemoglobin 14.8 g/dL (13.5-17.5)
[2018-07-20 17:00] VITALS: BP 118/87
[2018-07-20] MEDS: TAMSULOSIN HYDROCHLORIDE 0.4 MG CAP PO SCH (17:43)
[2018-07-20] MEDS: BUMETANIDE 1 MG TAB PO SCH (17:43)
[2018-07-20 21:57] VITALS: BP 115/80
[2018-07-21 05:22] VITALS: BP 117/80
[2018-07-21] MEDS: BUMETANIDE 1 MG TAB PO SCH ×2 (05:30→17:50)
[2018-07-21] MEDS: ACCU-CHEK COMFORT CURVE STRIP VI SCH ×4 (05:31→23:36)
[2018-07-21] MEDS: InsuLIN REG 1unit/0.01ml Soln (100units/ml) SC SCH ×4 (05:49→23:35)
[2018-07-21] MEDS: ALBUTEROL SULF 2.5 MG/0.5ML(0.5%) NEB SOLN NEB SCH ×3 (05:54→18:51)
[2018-07-21] MEDS: IPRATROPIUM BROM 0.5 MG/2.5ML INH SOL NEB SCH ×3 (05:54→18:51)
[2018-07-21 06:31] LABS: BUN/Creatinine Ratio 29.6; Bilirubin, Total 1.9 mg/dL (0.2-1.0); Phosphorus 3.1 mg/dL (2.5-4.90); Potassium 4.2 mmol/L (3.5-5.1); Total Protein 5.8 g/dL (6.4-8.2)
[2018-07-21 09:00] VITALS: BP 124/85
[2018-07-21] MEDS: cefTRIAXone 1GM/10ml IVPUSH 10 ML IV SCH (10:19)
[2018-07-21] MEDS: predniSONE 20 MG TAB PO SCH (10:19)
[2018-07-21] MEDS: LOSARTAN POTASSIUM 25 MG TAB PO SCH (10:19)
[2018-07-21] MEDS: PANTOPRAZOLE 40 MG TAB PO SCH (10:19)
[2018-07-21] MEDS: SERTRALINE HCL 50 MG TAB PO SCH (10:20)
[2018-07-21] MEDS: AZITHROMYCIN 250 MG TAB PO SCH (10:20)
[2018-07-21] MEDS: ENOXAPARIN SOD 30 MG/0.3 ML SYRINGE SC SCH (10:20)
[2018-07-21 13:00] VITALS: BP 101/55
[2018-07-21] MEDS: HYDROcodone-ACET 5/325MG TAB PO PRN (14:53)
[2018-07-21 17:00] VITALS: BP 118/65
[2018-07-21] MEDS: TAMSULOSIN HYDROCHLORIDE 0.4 MG CAP PO SCH (17:50)
[2018-07-21] MEDS: ATENOLOL 25 MG TAB PO SCH (17:50)
[2018-07-21] MEDS: ACETAMINOPHEN 325 MG TAB PO PRN (19:37)
[2018-07-21] MEDS: ONDANSETRON HCL 4 MG/2 ML VIAL IV PRN (19:37)
[2018-07-21 22:44] VITALS: BP 131/85
[2018-07-22] MEDS: ALBUTEROL SULF 2.5 MG/0.5ML(0.5%) NEB SOLN NEB SCH ×4 (00:02→18:49)
[2018-07-22] MEDS: IPRATROPIUM BROM 0.5 MG/2.5ML INH SOL NEB SCH ×4 (00:02→18:48)
[2018-07-22 05:25] VITALS: BP 97/52
[2018-07-22] MEDS: InsuLIN REG 1unit/0.01ml Soln (100units/ml) SC SCH ×4 (05:38→23:50)
[2018-07-22] MEDS: ACCU-CHEK COMFORT CURVE STRIP VI SCH ×4 (05:39→23:50)
[2018-07-22] MEDS: BUMETANIDE 1 MG TAB PO SCH ×2 (05:39→17:43)
[2018-07-22 06:36] LABS: Basophils # (auto) 0 uL; Basophils % (auto) 0.3 % (0.0-2.0); Eosinophils # (auto) 0.1 uL; Eosinophils % (auto) 0.8 % (0.0-7.0); Hematocrit 42.3 % (41.0-53.0); Hemoglobin 14.3 g/dL (13.5-17.5); Lymphocytes # (auto) 1.2 uL; Lymphocytes % (auto) 16.4 % (10.0-50.0); Mean Corpuscular Hgb Conc. 33.7 g/dL (32.0-36.0); Monocytes # (auto) 0.8 uL; Monocytes % (auto) 11.5 % (0.0-12.0); Nucleated Red Blood Cells % 0.1 %; Platelet Count (auto) 81 10^3/uL (140-450); Red Blood Cells 4.92 10^6/uL (4.5-5.90); White Blood Cell 7.1 10^3/uL (4.4-10.8)
[2018-07-22 06:51] LABS: BUN/Creatinine Ratio 23.9; Calcium 7.5 mg/dL (8.5-10.1); Potassium 3.7 mmol/L (3.5-5.1)
[2018-07-22 09:00] VITALS: BP 95/64
[2018-07-22] MEDS: ENOXAPARIN SOD 30 MG/0.3 ML SYRINGE SC SCH (10:04)
[2018-07-22] MEDS: ONDANSETRON HCL 4 MG/2 ML VIAL IV PRN (10:04)
[2018-07-22] MEDS: cefTRIAXone 1GM/10ml IVPUSH 10 ML IV SCH (10:04)
[2018-07-22] MEDS: HYDROcodone-ACET 5/325MG TAB PO PRN (10:05)
[2018-07-22] MEDS: LOSARTAN POTASSIUM 25 MG TAB PO SCH (10:06)
[2018-07-22] MEDS: AZITHROMYCIN 250 MG TAB PO SCH (10:06)
[2018-07-22] MEDS: PANTOPRAZOLE 40 MG TAB PO SCH (10:06)
[2018-07-22] MEDS: SERTRALINE HCL 50 MG TAB PO SCH (10:18)
[2018-07-22] MEDS: predniSONE 20 MG TAB PO SCH (10:19)
[2018-07-22] MEDS: LORazepam 0.5 MG TAB PO PRN ×2 (10:19→22:03)
[2018-07-22 13:00] VITALS: BP 125/73
[2018-07-22 17:00] VITALS: BP 123/63
[2018-07-22] MEDS: ATENOLOL 25 MG TAB PO SCH (17:43)
[2018-07-22] MEDS: TAMSULOSIN HYDROCHLORIDE 0.4 MG CAP PO SCH (17:43)
[2018-07-22 21:44] VITALS: BP 123/63
[2018-07-22] MEDS: SACUBITRIL-VALSARTAN 24mg/26mg TAB PO SCH (21:59)
[2018-07-22 22:00] VITALS: BP 126/79
[2018-07-23] MEDS: ALBUTEROL SULF 2.5 MG/0.5ML(0.5%) NEB SOLN NEB SCH ×4 (00:13→19:31)
[2018-07-23] MEDS: IPRATROPIUM BROM 0.5 MG/2.5ML INH SOL NEB SCH ×4 (00:13→19:32)
[2018-07-23] MEDS: HYDROcodone-ACET 5/325MG TAB PO PRN (01:33)
[2018-07-23] MEDS: BUMETANIDE 1 MG TAB PO SCH ×2 (05:41→18:36)
[2018-07-23] MEDS: ACCU-CHEK COMFORT CURVE STRIP VI SCH ×3 (05:42→18:37)
[2018-07-23] MEDS: InsuLIN REG 1unit/0.01ml Soln (100units/ml) SC SCH ×3 (05:49→18:38)
[2018-07-23 05:53] VITALS: BP 130/84
[2018-07-23 06:22] LABS: Basophils # (auto) 0 uL; Basophils % (auto) 0.2 % (0.0-2.0); Eosinophils # (auto) 0 uL; Eosinophils % (auto) 0.6 % (0.0-7.0); Hematocrit 44.1 % (41.0-53.0); Hemoglobin 14.6 g/dL (13.5-17.5); Mean Corpuscular Hemoglobin 28.5 pg (28.0-32.0); Mean Corpuscular Volume 86.3 fL (80.0-100.0); Monocytes # (auto) 0.8 uL; Monocytes % (auto) 9.9 % (0.0-12.0); Neutrophils # (auto) 6.2 uL; Neutrophils % (auto) 77.3 % (37.0-80.0); Nucleated Red Blood Cells % 0.2 %; Platelet Count (auto) 94 10^3/uL (140-450); Red Blood Cells 5.11 10^6/uL (4.5-5.90); Red Cell Distribution Width 16.8 % (11.8-14.3)
[2018-07-23 06:37] LABS: BUN/Creatinine Ratio 22.9; Calcium 8.1 mg/dL (8.5-10.1); Potassium 3.8 mmol/L (3.5-5.1)
[2018-07-23 08:00] VITALS: BP 124/73
[2018-07-23 09:00] VITALS: BP 124/73
[2018-07-23] MEDS: cefTRIAXone 1GM/10ml IVPUSH 10 ML IV SCH (10:01)
[2018-07-23] MEDS: SACUBITRIL-VALSARTAN 24mg/26mg TAB PO SCH ×2 (10:02→22:00)
[2018-07-23] MEDS: SERTRALINE HCL 50 MG TAB PO SCH (10:02)
[2018-07-23] MEDS: PANTOPRAZOLE 40 MG TAB PO SCH (10:02)
[2018-07-23] MEDS: AZITHROMYCIN 250 MG TAB PO SCH (10:02)
[2018-07-23] MEDS: predniSONE 20 MG TAB PO SCH (10:02)
[2018-07-23] MEDS: ENOXAPARIN SOD 30 MG/0.3 ML SYRINGE SC SCH (10:02)
[2018-07-23] MEDS: LORazepam 0.5 MG TAB PO PRN ×2 (12:30→20:44)
[2018-07-23 13:00] VITALS: BP_SYST 118; BP_SYST 125; BP_DIAS 67; BP_DIAS 76
[2018-07-23] MEDS: POTASSIUM CHL 20 Meq TABLET PO SCH (15:14)
[2018-07-23] MEDS: ATENOLOL 25 MG TAB PO SCH (18:37)
[2018-07-23] MEDS: TAMSULOSIN HYDROCHLORIDE 0.4 MG CAP PO SCH (18:37)
[2018-07-23 21:58] VITALS: BP 124/57
[2018-07-23] MEDS: ACETAMINOPHEN 325 MG TAB PO PRN (22:02)
[2018-07-24] MEDS: IPRATROPIUM BROM 0.5 MG/2.5ML INH SOL NEB SCH ×3 (00:58→12:08)
[2018-07-24] MEDS: ALBUTEROL SULF 2.5 MG/0.5ML(0.5%) NEB SOLN NEB SCH ×3 (00:59→12:08)
[2018-07-24] MEDS: InsuLIN REG 1unit/0.01ml Soln (100units/ml) SC SCH ×3 (01:00→12:49)
[2018-07-24] MEDS: ACCU-CHEK COMFORT CURVE STRIP VI SCH ×3 (01:00→12:00)
[2018-07-24 04:58] VITALS: BP 109/61
[2018-07-24] MEDS: BUMETANIDE 1 MG TAB PO SCH (05:56)
[2018-07-24 06:11] LABS: Albumin 2.8 g/dL (3.4-5.0); BUN/Creatinine Ratio 21.8; Bilirubin, Total 1.8 mg/dL (0.2-1.0); Calcium 7.8 mg/dL (8.5-10.1); Potassium 3.7 mmol/L (3.5-5.1); Total Protein 5.3 g/dL (6.4-8.2)
[2018-07-24 06:18] LABS: Hematocrit 45.6 % (41.0-53.0); Hemoglobin 14.7 g/dL (13.5-17.5); Mean Corpuscular Hemoglobin 28.8 pg (28.0-32.0); Mean Corpuscular Hgb Conc. 32.3 g/dL (32.0-36.0); Mean Corpuscular Volume 89.2 fL (80.0-100.0); Platelet Count (auto) 97 10^3/uL (140-450); Red Blood Cells 5.12 10^6/uL (4.5-5.90); Red Cell Distribution Width 17.4 % (11.8-14.3); White Blood Cell 8.9 10^3/uL (4.4-10.8)
[2018-07-24 06:20] LABS: Band Neutrophils % (manual) 0; Basophils % (manual) 0 (0.0-2.0); Blast Cells 0; Eosinophils % (manual) 0 (0-7); Metamyelocytes % 0; Myelocytes % 0; Promyelocytes % 0; Reactive Lymphocytes 0
[2018-07-24 07:53] LABS: Lymphocytes % (manual) 8 (10.0-50.0); Monocytes % (manual) 7 (0-12)
[2018-07-24 08:42] VITALS: BP 118/64
[2018-07-24] MEDS: cefTRIAXone 1GM/10ml IVPUSH 10 ML IV SCH (10:23)
[2018-07-24] MEDS: POTASSIUM CHL 20 Meq TABLET PO SCH (10:24)
[2018-07-24] MEDS: AZITHROMYCIN 250 MG TAB PO SCH (10:24)
[2018-07-24] MEDS: SACUBITRIL-VALSARTAN 24mg/26mg TAB PO SCH (10:24)
[2018-07-24] MEDS: predniSONE 20 MG TAB PO SCH (10:24)
[2018-07-24] MEDS: PANTOPRAZOLE 40 MG TAB PO SCH (10:25)
[2018-07-24] MEDS: ENOXAPARIN SOD 30 MG/0.3 ML SYRINGE SC SCH (10:26)
[2018-07-24] MEDS: SERTRALINE HCL 50 MG TAB PO SCH (10:26)
[2018-07-24 12:07] VITALS: BP 111/68
[2018-07-24] MEDS: LORazepam 0.5 MG TAB PO PRN (13:06)
[2018-07-24 17:10] VITALS: BP 135/74
== END 2018-07-24 17:30 | DRG 871 ==
LOC: EDBD 18:13 → ER 18:15 → TELE-CENTR 18:16
PROVIDERS: ADMIT Nurse Practitioner; ATTEND Internal Medicine
DX: A41.9 Sepsis, unspecified organism (principal); J18.1 Lobar pneumonia, unspecified organism; J96.20 Acute and chronic respiratory failure, unspecified whether with hypoxia or hypercapnia; I50.43 Acute on chronic combined systolic (congestive) and diastolic (congestive) heart failure; N17.0 Acute kidney failure with tubular necrosis; I13.0 Hypertensive heart and chronic kidney disease with heart failure and stage 1 through stage 4 chronic kidney disease, or unspecified chronic kidney disease; E87.1 Hypo-osmolality and hyponatremia; D68.69 Other thrombophilia; I42.9 Cardiomyopathy, unspecified; I48.92 Unspecified atrial flutter; J44.0 Chronic obstructive pulmonary disease with (acute) lower respiratory infection; J44.1 Chronic obstructive pulmonary disease with (acute) exacerbation; E44.0 Moderate protein-calorie malnutrition; D69.6 Thrombocytopenia, unspecified; N18.3 Chronic kidney disease, stage 3 (moderate); E11.22 Type 2 diabetes mellitus with diabetic chronic kidney disease; E66.01 Morbid (severe) obesity due to excess calories; C61 Malignant neoplasm of prostate; E11.21 Type 2 diabetes mellitus with diabetic nephropathy; E78.5 Hyperlipidemia, unspecified; I25.10 Atherosclerotic heart disease of native coronary artery without angina pectoris; I48.91 Unspecified atrial fibrillation; R65.20 Severe sepsis without septic shock; Z82.49 Family history of ischemic heart disease and other diseases of the circulatory system; Z68.33 Body mass index [BMI] 33.0-33.9, adult; Z88.1 Allergy status to other antibiotic agents; Z85.46 Personal history of malignant neoplasm of prostate; Z95.810 Presence of automatic (implantable) cardiac defibrillator; Z83.3 Family history of diabetes mellitus
CPT/HCPCS: 36415; 36600; 71045; 80048; 80053; 80076; 81001; 82570; 82805; 82962; 83605; 83735; 83880; 83930; 83935; 84100; 84156; 84300; 84484; 85007; 85014; 85018; 85025; 85027; 85610; 85730; 87040; 87081; 93005; 94640; 94761; 96374; 96375; J0696; J1815; J2405

== ENCOUNTER 2019-06-07 17:03 | Inpatient (IN) | payer OTHER ==
[~2019-06-07] VITALS: Ht 157.5 cm; Wt 85.4 kg
[~2019-06-07 17:03] MED LIST changes: -FURO20TA PO; -LORA2TAB10 PO
[2019-06-07] MEDS ORDERED: SODIUM CHLORIDE 0.9% 1,000 ML IV ONE (17:33)
[2019-06-07 17:47] LABS: Basophils # (auto) 0.1 uL; Basophils % (auto) 1.2 % (0.0-2.0); Eosinophils # (auto) 0.1 uL; Hematocrit 42.8 % (41.0-53.0); Lymphocytes # (auto) 1.2 uL; Lymphocytes % (auto) 17.3 % (10.0-50.0); Mean Corpuscular Hemoglobin 27.9 pg (28.0-32.0); Mean Corpuscular Hgb Conc. 32.8 g/dL (32.0-36.0); Mean Corpuscular Volume 85.1 fL (80.0-100.0); Monocytes % (auto) 14.7 % (0.0-12.0); Neutrophils # (auto) 4.4 uL; Neutrophils % (auto) 65.8 % (37.0-80.0); Nucleated Red Blood Cells % 0.2 %; Platelet Count (auto) 131 10^3/uL (140-450); Red Blood Cells 5.02 10^6/uL (4.5-5.90); Red Cell Distribution Width 17.7 % (11.8-14.3); White Blood Cell 6.7 10^3/uL (4.4-10.8)
[2019-06-07 18:05] LABS: INR 1.39 (0.9-1.15); Partial Thromboplastin Time 28.3 sec (23.64-32.05)
[2019-06-07 18:08] LABS: Urine Bacteria NONE SEEN /hpf (None Seen); Urine Blood Negative /uL (Negative); Urine Hyaline Cast FEW /lpf (0 - 2); Urine Specific Gravity 1.007 (1.001-1.035); Urine WBC 1 /hpf (0 - 3)
[2019-06-07 18:08] LABS: Alanine Aminotransferase 37 U/L (16-61); Albumin 3.4 g/dL (3.4-5.0); Anion Gap 9 (5-15); Aspartate Aminotransferase 26 U/L (15-37); BUN/Creatinine Ratio 18.4; Blood Urea Nitrogen 34 mg/dL (7-18); Calcium 8.5 mg/dL (8.5-10.1); Carbon Dioxide 25 mmol/L (21-32); Chloride 104 mmol/L (98-107); GFR African American 45 mL/min; GFR Non-African American 37 mL/min; Glucose 111 mg/dL (74-106); Magnesium 2.2 mg/dL (1.6-2.6); Potassium 4.2 mmol/L (3.5-5.1); Sodium 138 mmol/L (136-145)
[2019-06-07 18:12] LABS: Alkaline Phosphatase 55 U/L (45-117); Bilirubin, Total 2.6 mg/dL (0.2-1.0); Total Protein 6.7 g/dL (6.4-8.2)
[2019-06-07] MEDS ORDERED: FUROSEMIDE 20 MG/2 ML VIAL IV ONE ×2 (20:00→21:30)
[2019-06-07] MEDS ORDERED: ACETAMINOPHEN 500 MG TAB PO PRN (22:30)
[2019-06-07] MEDS ORDERED: ONDANSETRON HCL 4 MG/2 ML VIAL IV PRN (22:30)
[2019-06-07] MEDS ORDERED: TEMAZEPAM 15 MG CAP PO PRN (22:30)
[2019-06-07] MEDS: LORazepam 0.5 MG TAB PO PRN (23:12)
[2019-06-08 00:45] VITALS: BP_SYST 118; BP_SYST 132; BP_DIAS 74; BP_DIAS 81
--- NOTE | 2019-06-08 00:45 | NUR ---
Telemetry admit from [facility] admitted to Telemetry unit after SBAR received. Patient oriented to Frankie jean RN, unit, room, bed, and unit policies regarding patient care and visiting hours. Patient now on continuous telemetry monitoring, tele box # 19 and telemetry reading on arrival to unit is paced. Patient placed on bedside oxygen, weighed by bed scale and encouraged to call if they need something. All questions and concerns addressed, patient verbalized understanding.
--- NOTE | 2019-06-08 00:45 | NUR ---
Opening Shift Note Assumed care of patient, awake and alert. No S/S of distress/SOB or pain. Instructed on POC and to call for assist PRN, will continue to monitor for changes Q1hr and PRN. Addendum: 06/08/19 at 0431 by Frankie Camara RN Wrong charting
[2019-06-08] MEDS: HYDROcodone-ACET 5/325MG TAB PO PRN ×2 (03:42→18:41)
[2019-06-08 05:17] LABS: Basophils # (auto) 0.1 uL; Basophils % (auto) 0.9 % (0.0-2.0); Eosinophils # (auto) 0.1 uL; Eosinophils % (auto) 1.7 % (0.0-7.0); Hematocrit 40.4 % (41.0-53.0); Hemoglobin 13.1 g/dL (13.5-17.5); Lymphocytes # (auto) 1.4 uL; Lymphocytes % (auto) 19.6 % (10.0-50.0); Mean Corpuscular Hemoglobin 27.6 pg (28.0-32.0); Mean Corpuscular Hgb Conc. 32.4 g/dL (32.0-36.0); Mean Corpuscular Volume 85.3 fL (80.0-100.0); Monocytes % (auto) 13.6 % (0.0-12.0); Neutrophils # (auto) 4.7 uL; Neutrophils % (auto) 64.2 % (37.0-80.0); Nucleated Red Blood Cells % 0.1 %; Platelet Count (auto) 117 10^3/uL (140-450); Red Blood Cells 4.74 10^6/uL (4.5-5.90); Red Cell Distribution Width 17.7 % (11.8-14.3); White Blood Cell 7.4 10^3/uL (4.4-10.8)
[2019-06-08 05:46] LABS: Calcium 8.3 mg/dL (8.5-10.1); Potassium 3.6 mmol/L (3.5-5.1)
[2019-06-08 05:49] LABS: BUN/Creatinine Ratio 20.1
[2019-06-08] MEDS: PANTOPRAZOLE 40 MG TAB PO SCH (06:47)
[2019-06-08 08:31] VITALS: BP 119/74
[2019-06-08] MEDS: CARVEDILOL 3.125 MG TAB PO SCH ×2 (09:47→18:00)
[2019-06-08] MEDS: SPIRONOLACTONE 25 MG TAB PO SCH (09:49)
[2019-06-08] MEDS: FUROSEMIDE 40 MG/4 ML VIAL IV SCH (09:50)
[2019-06-08] MEDS: DOCUSATE SOD 100 MG CAP PO SCH ×2 (09:51→23:47)
[2019-06-08] MEDS: AMIODARONE HCL 200 MG TAB PO SCH (09:52)
[2019-06-08] MEDS: SERTRALINE HCL 50 MG TAB PO SCH (09:52)
[2019-06-08] MEDS: LORazepam 0.5 MG TAB PO PRN (09:58)
[2019-06-08] MEDS ORDERED: cloNIDine HCL 0.1 MG TAB PO SCH (10:00)
--- NOTE | 2019-06-08 10:00 | NUR ---
PT REPORTS HE IS HAVING ANXIETY, PRN ATIVAN GIVEN, WILL CONTINUE TO MONITOR.
[2019-06-08 12:46] VITALS: BP 97/56
--- NOTE | 2019-06-08 16:13 | NUR ---
DR ISABELA GONZALEZ SAW PATIENT AND DISCUSSED POC. FUENTES MENDOZA TRANSLATED TO PATIENT AND . NEW ORDERS FOR CARDIAC CONSULT WITH DR KANG FOR CHF. NEW ORDERS TO DC KEATING AND DO BLADDER SCAN AT 2000 POST VOID. IF RESIDUAL IS LESS THAN 200, MD REPORTS NO NEED TO REINSERT KEATING. IF RESIDUAL MORE THAN 200, KEATING IS TO BE REINSERTED. KEATING DC'D PER MD ORDER, 9 MLS 0.9 NS TAKEN FROM [facility]. BAG EMPTY, FUENTES REPORTS PT HAD APPROX 500 MLS URINE.
[2019-06-08 16:52] VITALS: BP 101/59
--- NOTE | 2019-06-08 17:15 | NUR ---
DR ISABELA GONZALEZ SPOKE WITH PATIENT AND ABOUT PT MEDICATIONS AT HOME. CAME BY AND REQUESTED PT CAREGIVER BE NOTIFIED PT IS ON BOTH MELOXICAM AND DICLOFENAC. REPORTS SHE WANTS PATIENT TO STOP TAKING BOTH AND USE TYLENOL 500 MG Q 8HRS INSTEAD. MD ALSO REPORTS TO NOTIFY CAREGIVER PT IS ON RESTORIL AND LORAZEPAM AND THE ASSOCIATED RISKS OF BEING ON BOTH MEDICATIONS. ASKED EMERGENCY DEPARTMENT COORDINATOR TO TRANSLATE, PT REPORTS HIS CAREGIVER IS AURELIA AND HER NUMBER IS [phone]. CALLED NUMBER, NO ANSWER AND VOICEMAIL BOX IS NOT SET UP TO RECEIVE MESSAGES. PT REPORTS HIS QUALITY COORDINATOR WILL BE HERE LATER TO VISIT.
[2019-06-08] MEDS ORDERED: TAMSULOSIN HYDROCHLORIDE 0.4 MG CAP PO SCH (18:00)
--- NOTE | 2019-06-08 18:23 | NUR ---
AURELIA, PT CAREGIVER, AT BEDSIDE. WROTE DR ISABELA RUDD NOTE ON SEPARATE PIECE OF PAPER AND GAVE CAREGIVER INSTRUCTION. PT IS NOT TO TAKE MELOXICAM AND DICLOFENAC. PT IS TO TAKE TYLENOL 500 MG EVERY 8 HOURS NEEDED FOR PAIN. CAREGIVER ALSO ADVISED PT IS TAKING RESTORIL AND LORAZEPAM AT HOME. CAREGIVER ADVISED THESE ARE DUPLICATE MEDICATIONS AND COULD CAUSE FALLS, RESPIRATORY DEPRESSION AND ENCEPHALOPATHY, AND WAS ADVISED AGAINST TAKING BOTH MEDICATIONS PER MD REQUEST. AURELIA VERBALIZED UNDERSTANDING AND WAS GIVEN THESE INSTRUCTIONS IN WRITING.
--- NOTE | 2019-06-08 19:00 | NUR ---
Opening Shift Note Assumed care of patient, awake and alert. No S/S of distress/SOB or pain. Instructed on POC and to call for assist PRN, will continue to monitor for changes Q1hr and PRN.
--- NOTE | 2019-06-08 20:00 | NUR ---
After voiding bladder scan done: Residual 60 ml Pt tolerated well Upset knowing he is not getting Tylenol anymore.
[2019-06-08 22:00] VITALS: BP 107/69
--- NOTE | 2019-06-08 22:00 | NUR ---
Paged hospitalist for Ativan order.
--- NOTE | 2019-06-08 22:30 | NUR ---
Per hospitalist no Ativan order Pt should receive Restoril as ordered.
[2019-06-09 05:00] VITALS: BP 115/68
[2019-06-09] MEDS: PANTOPRAZOLE 40 MG TAB PO SCH (06:44)
--- NOTE | 2019-06-09 08:20 | NUR ---
CARDIO CONSULT CALLED IN YESTERDAY. CALLED [facility] TO FOLLOW UP ON ECHO RESULTS, THEY REPORT THEY ARE WAITING FOR DR NIETO TO READ IT. CALLED DR NIETO AND LEFT MESSAGE REQUESTING MD READ RESULTS.
[2019-06-09 09:05] VITALS: BP 111/74
--- NOTE | 2019-06-09 10:22 | NUR ---
TATA MARQUEZ RN REPORTED THIS MORNING PT IS PEEING SMALL AMOUNTS FREQUENTLY, WITH NO DIFFICULTY. DR ANDRADE SAW PATIENT AND DISCUSSED POC. NEW ORDERS FOR DISCHARGE AND FOR PATIENT TO FOLLOW UP WITH DR KANG THIS WEEK OUTPATIENT. PATIENT AWARE, WILL CONTINUE TO MONITOR.
[2019-06-09] MEDS: CARVEDILOL 3.125 MG TAB PO SCH (10:31)
[2019-06-09] MEDS: FUROSEMIDE 40 MG/4 ML VIAL IV SCH (10:35)
[2019-06-09] MEDS: DOCUSATE SOD 100 MG CAP PO SCH (10:36)
[2019-06-09] MEDS: AMIODARONE HCL 200 MG TAB PO SCH (10:36)
[2019-06-09] MEDS: SPIRONOLACTONE 25 MG TAB PO SCH (10:36)
[2019-06-09] MEDS: SERTRALINE HCL 50 MG TAB PO SCH (10:37)
--- NOTE | 2019-06-09 12:31 | NUR ---
PT DAUGHTER REQUESTING ONE TIME DOSE OF ATIVAN BEFORE DISCHARGE, CALLED DR DAVIS, NEW ORDERS FOR ONE TIME DOSE.
[2019-06-09] MEDS ORDERED: LORazepam 0.5 MG TAB PO ONE (12:45)
--- NOTE | 2019-06-09 13:01 | NUR ---
NO ACCE OR ARB LISTED UNDER PT HOME MEDS FOR DISCHARGE SCREENING. CALLED AND PAGED DR DAVIS TO NOTIFY
--- NOTE | 2019-06-09 13:04 | NUR ---
DR DAVIS CALLED BACK, NOTIFIED PT NOT ON KARL OR ARB AT HOME. DR ANDRADE REPORTS DR HERMOSILLO IS HIS INFORMATION TECHNOLOGY ADVISOR AND HE IS TO FOLLOW UP WITH HIM OUT PATIENT, AND DR HERMOSILLO WILL PRESCRIBE THE APPROPRIATE MEDICATIONS FOR PATIENT. SPOKE WITH CIRCULAR TANK COOPER, SHE REPORTS SHE IS UNABLE TO SCHEDULE FOLLOW UP APPOINTMENT WITH DR HERMOSILLO BECAUSE A REFERAL IS NEEDED THROUGH DR DUMONT. PT HAS APPOINTMENT SCHEDULED WITH DR DUMONT FOR DISCHARGE.
[2019-06-09 13:11] VITALS: BP 131/82
--- NOTE | 2019-06-09 14:49 | NUR ---
Discharge instructions given as ordered. Encourage to follow up with PMD as instructed. All questions and concerns addressed. Patient verbalized understanding. Medication reconciliation form completed and copy given to patient. IV removed with catheter intact, pressure dressing applied. Telemetry unit returned to ICU. Patient taken to vehicle via wheelchair with all personal belongings, accompanied by staff and caregivers non medical. No distress noted at time of departure.
== END 2019-06-09 14:00 | disposition home or self-care (01) | DRG 291 ==
LOC: ER 17:03 → TELE 17:04 → TELE-WESTW 23:57
PROVIDERS: ADMIT Nurse Practitioner Family; ATTEND Internal Medicine
DX: I13.0 Hypertensive heart and chronic kidney disease with heart failure and stage 1 through stage 4 chronic kidney disease, or unspecified chronic kidney disease (principal); I50.43 Acute on chronic combined systolic (congestive) and diastolic (congestive) heart failure; N17.0 Acute kidney failure with tubular necrosis; I48.92 Unspecified atrial flutter; I48.1 Persistent atrial fibrillation; D68.69 Other thrombophilia; N18.3 Chronic kidney disease, stage 3 (moderate); N40.1 Benign prostatic hyperplasia with lower urinary tract symptoms; R33.8 Other retention of urine; K21.9 Gastro-esophageal reflux disease without esophagitis; I70.0 Atherosclerosis of aorta; F41.9 Anxiety disorder, unspecified; E78.5 Hyperlipidemia, unspecified; E03.9 Hypothyroidism, unspecified; I42.0 Dilated cardiomyopathy; D69.6 Thrombocytopenia, unspecified; E11.22 Type 2 diabetes mellitus with diabetic chronic kidney disease; E66.01 Morbid (severe) obesity due to excess calories; G47.33 Obstructive sleep apnea (adult) (pediatric); I25.10 Atherosclerotic heart disease of native coronary artery without angina pectoris; E11.21 Type 2 diabetes mellitus with diabetic nephropathy; Z88.1 Allergy status to other antibiotic agents; Z82.49 Family history of ischemic heart disease and other diseases of the circulatory system; Z79.899 Other long term (current) drug therapy; Z83.3 Family history of diabetes mellitus; Z81.1 Family history of alcohol abuse and dependence; Z95.810 Presence of automatic (implantable) cardiac defibrillator; Z87.01 Personal history of pneumonia (recurrent); Z68.34 Body mass index [BMI] 34.0-34.9, adult
CPT/HCPCS: 36415; 51702; 71045; 80048; 80053; 81001; 83735; 83880; 84443; 84484; 85025; 85610; 85730; 93005; 93306; 94761; 96361; 96374; 96376; G0378

== ENCOUNTER 2019-10-05 12:12 | Emergency (ER) | payer OTHER ==
[~2019-10-05] VITALS: Ht 177.8 cm; Wt 99.8 kg
[~2019-10-05 12:12] MED LIST changes: -BUSP5TAB51 PO; -CLON0.1T PO; -DICL50TA2 PO; +DOCU1CAP46 PO; -DOCU1CAP54 PO; -LORA2TAB89 PO; -MECL1TAB42 PO; -MELO1TAB56 PO; -TRAM50TA2 PO
[2019-10-05] MEDS ORDERED: SODIUM CHLORIDE 0.9% 1,000 ML IV ONE ×2 (13:34→14:45)
[2019-10-05 14:15] LABS: Basophils # (auto) 0.1 uL; Basophils % (auto) 0.7 % (0.0-2.0); Eosinophils # (auto) 0 uL; Eosinophils % (auto) 0.3 % (0.0-7.0); Hematocrit 43.2 % (41.0-53.0); Hemoglobin 14.3 g/dL (13.5-17.5); Lymphocytes # (auto) 0.8 uL; Lymphocytes % (auto) 8.9 % (10.0-50.0); Mean Corpuscular Hemoglobin 29.5 pg (28.0-32.0); Mean Corpuscular Hgb Conc. 33.1 g/dL (32.0-36.0); Mean Corpuscular Volume 88.9 fL (80.0-100.0); Monocytes # (auto) 0.9 uL; Monocytes % (auto) 10.1 % (0.0-12.0); Neutrophils # (auto) 7.3 uL; Nucleated Red Blood Cells % 0.1 %; Platelet Count (auto) 105 10^3/uL (140-450); Red Blood Cells 4.86 10^6/uL (4.5-5.90); White Blood Cell 9.1 10^3/uL (4.4-10.8)
[2019-10-05 14:25] LABS: Albumin 3.7 g/dL (3.4-5.0); Anion Gap 6 (5-15); BUN/Creatinine Ratio 15.9; Blood Urea Nitrogen 27 mg/dL (7-18); Calcium 8.5 mg/dL (8.5-10.1); Carbon Dioxide 28 mmol/L (21-32); Chloride 108 mmol/L (98-107); GFR African American 50 mL/min; GFR Non-African American 41 mL/min; Glucose 116 mg/dL (74-106); Potassium 4.6 mmol/L (3.5-5.1); Sodium 142 mmol/L (136-145)
[2019-10-05 14:30] LABS: Alanine Aminotransferase 24 U/L (16-61); Alkaline Phosphatase 66 U/L (45-117); Aspartate Aminotransferase 15 U/L (15-37); Bilirubin, Total 1.8 mg/dL (0.2-1.0); Total Protein 7.3 g/dL (6.4-8.2)
[2019-10-05 14:44] LABS: Urine Bacteria NONE SEEN /hpf (None Seen); Urine Blood Negative /uL (Negative); Urine Hyaline Cast MANY /lpf (0 - 2); Urine Mucus FEW (None Seen); Urine Specific Gravity 1.009 (1.001-1.035); Urine WBC 2 /hpf (0 - 3)
[2019-10-05] MEDS ORDERED: FUROSEMIDE 40 MG/4 ML VIAL IV ONE (14:45)
[2019-10-05 16:28] VITALS: BP 120/86
== END 2019-10-05 16:28 | disposition home or self-care (01) ==
LOC: EDUNIT# 12:12 → ER 12:12 → EDBD 12:12 → ER 16:28
DX: R09.89 Other specified symptoms and signs involving the circulatory and respiratory systems (principal); I13.0 Hypertensive heart and chronic kidney disease with heart failure and stage 1 through stage 4 chronic kidney disease, or unspecified chronic kidney disease; E11.22 Type 2 diabetes mellitus with diabetic chronic kidney disease; N18.9 Chronic kidney disease, unspecified; I50.9 Heart failure, unspecified; E78.5 Hyperlipidemia, unspecified; Z95.0 Presence of cardiac pacemaker
CPT/HCPCS: 36415; 71046; 80053; 81001; 83735; 84443; 84484; 85025; 93005; 96361; 96374; 99284; J1940; J7030